=== PATIENT | female | born 1935 | race Caucasian/White ===

== ENCOUNTER 2017-05-11 15:19 | Inpatient (IN) ==
[2017-05-11] MEDS ORDERED: BISACODYL 10 MG RC PRN (21:20)
[2017-05-11] MEDS ORDERED: COLACE 100 MG PO PRN (21:20)
[2017-05-11] MEDS ORDERED: Ondansetron ODT 4 MG TAB.RAPDIS SL PRN (21:20)
[2017-05-12] MEDS: Acetaminophen 325 MG TABLET PO PRN (02:30)
[2017-05-12] MEDS: Ipratropium/Albuterol Neb 3 ML IH SCH ×4 (04:56→20:06)
[2017-05-12 05:21] LABS: Basophils % 0.4 %; Eosinophils # 0.3 K/mcL (0.0-0.6); Eosinophils % 3.8 %; Hematocrit 25.1 % (35.3-44.9); Hemoglobin 8.3 g/dL (11.5-15.4); Immature Granulocytes % 0.6 % (0-4); Lymphocytes # 1.1 K/mcL (0.6-4.6); Lymphocytes % 13.4 %; Mean Corpuscular HGB Conc 33.1 g/dL (31.6-35.5); Mean Corpuscular Hemoglobin 30.5 pg (28.0-33.3); Mean Corpuscular Volume 92.3 fL (83.0-100.0); Mean Platelet Volume 9.1 fL (9.4-12.4); Monocytes # 0.9 K/mcL (0.0-1.3); Platelet Count 307 K/mcL (140-400); Red Blood Count 2.72 M/mcL (3.82-4.97); Red Cell Distribution Width 15.3 % (11.5-14.5); Segmented Neutrophils % 70.8 %
[2017-05-12 05:23] LABS: INR 1.3; Prothrombin Time 13.6 Seconds (9.4-12.1)
[2017-05-12 05:26] LABS: Activated Partial Thrombo Time 24.1 Seconds (26.0-36.0)
[2017-05-12 05:29] LABS: BUN/Creatinine Ratio 14 (6-26); Blood Urea Nitrogen 9 mg/dL (7-20); Calcium 8.4 mg/dL (8.6-10.8); Carbon Dioxide 32 mEq/L (19-29); Chloride 98 mEq/L (98-109); Glucose 113 mg/dL (70-99); Osmolality,Calculated 283 (280-300); Potassium 3.5 mEq/L (3.5-4.5); Sodium 137 mEq/L (136-145); eGFR For African Americans > 60 (> 60); eGFR For Non-African Americans > 60 (> 60)
[2017-05-12] MEDS ORDERED: *HR* Enoxaparin 40 MG/0.4 ML SYRINGE SQ SCH (06:00)
[2017-05-12] MEDS ORDERED: LIPITOR 40 MG PO SCH (09:00)
[2017-05-12] MEDS ORDERED: DUONEB IH SCH (09:00)
[2017-05-12] MEDS ORDERED: SENNA 8.6 MG PO SCH (09:00)
[2017-05-12] MEDS ORDERED: NYSTATIN 1 GM TP SCH (09:00)
[2017-05-12] MEDS ORDERED: LASIX 20 MG PO SCH (09:00)
[2017-05-12] MEDS ORDERED: COREG 25 MG PO SCH (09:00)
[2017-05-12] MEDS ORDERED: LISINOPRIL 20 MG PO SCH (09:00)
[2017-05-12] MEDS ORDERED: SYNTHROID 125 MCG PO SCH (09:00)
[2017-05-12] MEDS: Nystatin POWDER 30 GM BOTTLE TP SCH ×3 (09:09→20:07)
[2017-05-12] MEDS: Sennosides 8.6 MG TABLET PO SCH (09:10)
[2017-05-12] MEDS: Furosemide 20 MG TABLET PO SCH (09:10)
[2017-05-12] MEDS: *HR* OxyCODONE Immed Rel 5 MG TABLET PO PRN (09:10)
[2017-05-12] MEDS: Aspirin Enteric Coated 81 MG Tablet PO SCH (09:10)
[2017-05-12] MEDS: Lisinopril 20 MG TABLET PO SCH (09:10)
--- NOTE | 2017-05-12 13:30 | Internal Med History&Physical ---
Date of Encounter: 05/12/17 Time of Encounter: 13:23 Assessment and Plan (1) CVA (cerebral vascular accident) Current visit: Yes Status: Acute Patient has left hemiplegia and problems associated with ischemic CVA Qualifiers: Precerebral and cerebral artery: middle cerebral artery Laterality of affected vessel: left Qualified Code(s): I63.312 - Cerebral infarction due to thrombosis of left middle cerebral artery Internal Medicine - H&P: HPI Chief complaint: This patient is here for CVA for rehabilitation Admitted From: Hospital to Hospital Transfer Plans for Post Hospital Care: Home History of present illness: Ms. Lozada is a 81 year old female Patient had an ischemic CVA Past Med Surg Social Fam HX - Past Medical History Medical history: atrial fibrillation, CVA, DVT, GERD, GI bleed, hyperlipidemia, hypertension, other Psychiatric history: no psych history - Past Surgical History Surgical History: appendectomy, cataract, hysterectomy, IVC filter - Social History Smoking Status: Never smoker Smokeless Tobacco Status: No Alcohol use: none Drug use: none - Family History Son Adopted: [place]: Telly Moy Age: 56 Family Member Ethnicity: Non- Living Status: Still Living Hx Family Cardiac Disorders: Yes Hx Family Respiratory Disorders: No Hx Family Cancer: Yes Hx Family GI Disorders: No Hx Family Genitourinary Disorders: No Hx Family Endocrine Disorder: Yes Hx Family Musculoskeletal Disorders: No Hx Family Neuromuscular Disorders: No Hx Family Neurologic Disorders: No Hx Family HEENT Disorders: No Hx Family Autoimmune Disorders: No Hx Family Reproductive Disorders: No Hx Family Psychosocial Disorders: No Hx Family Medical Disorders: No Internal Medicine - H&P: Meds Acetaminophen [Tylenol] 650 mg PO Q6HR PRN 05/11/17 [History] Aspirin [Lo-Dose Aspirin EC] 81 mg PO DAILY 05/11/17 [History] Atorvastatin [Lipitor] 40 mg PO DAILY 05/11/17 [History] Bisacodyl [Dulcolax] 10 mg DAILY PRN 05/11/17 [History] Carvedilol [Coreg] 25 mg PO BID 05/11/17 [History] Docusate [Colace] 100 mg PO BID PRN 05/11/17 [History] Furosemide [Lasix] 20 mg PO DAILY 05/11/17 [History] Ipratropium/Albuterol Neb [Duoneb] 3 ml IH Q6HWA 05/11/17 [History] Levothyroxine [Synthroid] 125 mcg PO DAILY 05/11/17 [History] Lisinopril [Zestril] 20 mg PO DAILY 05/11/17 [History] Melatonin [Melatonin] 5 mg PO HS 05/11/17 [History] Nystatin POWDER [Nystop] 1 gm TP QID 05/11/17 [History] Ondansetron ODT [Zofran ODT] 4 mg SL Q6HR PRN 05/11/17 [History] OxyCODONE Immed Rel [Roxicodone 5 MG] 5 mg PO Q4H PRN 05/11/17 [History] Sennosides [Senna] 8.6 mg PO DAILY 05/11/17 [History] Allergies No Known Allergies Allergy (Verified 10/07/15 10:27) All Systems PM: A 10-system review of systems was performed and is negative for pertinent findings except as documented above in the HPI. - Constitutional Vitals: Temp Pulse Resp BP Pulse Ox 97.8 F 83 18 148/66 95 05/12/17 11:23 05/12/17 11:23 05/12/17 11:23 05/12/17 11:23 05/12/17 11:23 - Head Head exam: Present: atraumatic, normocephalic - Neck Neck exam general surgery: Present: supple, trachea midline. Absent: lymphadenopathy - Respiratory Respiratory exam: Present: CTAB. Absent: accessory muscle use, rales, rhonchi, wheezes - Cardiovascular Cardiovascular exam: Present: RRR, +S1, +S2. Absent: diastolic murmur, gallop, rubs, systolic murmur - Neurological Exam Neurological exam: Present: CN II-XII intact, motor sensory deficit, oriented X3 , no focal deficits. Absent: pronater drift, facial droop, speech deficit Additional comments: Patient has significant weakness on left side Internal Med - H&P Results - Labs CBC & Chem 7: 05/12/17 05:05 05/12/17 05:05 Labs: Short CBC 05/12/17 Range/Units 05:05 WBC 8.5 (4.3-11.1) K/mcL Hgb 8.3 L (11.5-15.4) g/dL Hct 25.1 L (35.3-44.9) % Plt Count 307 (140-400) K/mcL Neutrophils # 6.0 (1.6-8.9) K/mcL BMP 05/12/17 05:05 Sodium 137 Potassium 3.5 Chloride 98 Carbon Dioxide 32 H BUN 9 Creatinine 0.63 Glucose 113 H Calcium 8.4 L Hemoglobins noted - VTE Documentation of Mechanical Device: Graduated compression elastic hosiery
[2017-05-12] MEDS: Melatonin 3 MG TABLET PO SCH (20:06)
[2017-05-12] MEDS ORDERED: NON-FORMULARY MEDICATION 1 EACH EACH (Melatonin 5 MG) PO SCH (21:00)
[2017-05-13] MEDS: Ipratropium/Albuterol Neb 3 ML IH SCH ×3 (04:00→15:34)
[2017-05-13] MEDS: *HR* Enoxaparin 80 MG/0.8 ML SYRINGE SQ SCH (05:43)
[2017-05-13] MEDS: *HR* OxyCODONE Immed Rel 5 MG TABLET PO PRN ×2 (09:27→20:47)
[2017-05-13] MEDS: Lisinopril 20 MG TABLET PO SCH (09:27)
[2017-05-13] MEDS: Nystatin POWDER 30 GM BOTTLE TP SCH ×3 (09:28→20:47)
[2017-05-13] MEDS: Furosemide 20 MG TABLET PO SCH (09:28)
[2017-05-13] MEDS: Aspirin Enteric Coated 81 MG Tablet PO SCH (09:28)
[2017-05-13] MEDS: Sennosides 8.6 MG TABLET PO SCH (09:28)
--- NOTE | 2017-05-13 14:23 | Internal Med Progress Note ---
Date of Encounter: 05/13/17 Time of Encounter: 14:21 - Assessment and plan (1) CVA (cerebral vascular accident) Current Visit: Yes Status: Acute Assessment and plan: This was somewhat remote was in the acute episode. She had presented to emergency room abdominal pain. She was found to have hematoma please see the study Qualifiers: Precerebral and cerebral artery: middle cerebral artery Laterality of affected vessel: left Qualified Code(s): I63.312 - Cerebral infarction due to thrombosis of left middle cerebral artery - Time Spent With Patient less than 15 minutes - Subjective Interval history: Patient is off working with the therapist. Yesterday I observe the sutures in her right leg and we removed those. The oanh that were pulled out seemed to been in a while and it was well healed - Constitutional Vitals: Temp Pulse Resp BP Pulse Ox 98.1 F 82 16 147/82 92 05/13/17 06:44 05/13/17 06:44 05/12/17 16:00 05/13/17 06:44 05/12/17 16:00 - Head Head exam: Present: atraumatic, normocephalic - Neck Neck exam general surgery: Present: supple, trachea midline. Absent: lymphadenopathy - Respiratory Respiratory exam: Present: CTAB. Absent: accessory muscle use, rales, rhonchi, wheezes - Cardiovascular Cardiovascular exam: Present: RRR, +S1, +S2. Absent: diastolic murmur, gallop, rubs, systolic murmur Internal Medicine: Result - Labs CBC & Chem 7: 05/12/17 05:05 05/12/17 05:05 Labs: Lab looks stable - ABG Interpretation ABG results: PT/INR, D-dimer PT 13.6 Seconds (9.4-12.1) H 05/12/17 05:05 - VTE Documentation of Mechanical Device: Graduated compression elastic hosiery Consult Discharge Plan - Plan Referrals: Viktoria Diaz, SOCIAL STUDIES TEACHER [Primary Care Provider] -
[2017-05-13] MEDS: Melatonin 3 MG TABLET PO SCH (20:47)
[2017-05-14] MEDS: *HR* Enoxaparin 80 MG/0.8 ML SYRINGE SQ SCH (04:15)
[2017-05-14] MEDS: *HR* OxyCODONE Immed Rel 5 MG TABLET PO PRN ×2 (04:16→21:51)
[2017-05-14] MEDS: Furosemide 20 MG TABLET PO SCH (08:11)
[2017-05-14] MEDS: Lisinopril 20 MG TABLET PO SCH (08:11)
[2017-05-14] MEDS: Sennosides 8.6 MG TABLET PO SCH (08:11)
[2017-05-14] MEDS: Aspirin Enteric Coated 81 MG Tablet PO SCH (08:11)
[2017-05-14] MEDS: Nystatin POWDER 30 GM BOTTLE TP SCH ×3 (08:12→22:04)
--- NOTE | 2017-05-14 13:51 | Internal Med Progress Note ---
Date of Encounter: 05/14/17 Time of Encounter: 13:49 - Assessment and plan (1) CVA (cerebral vascular accident) Current Visit: Yes Status: Acute Assessment and plan: This year for actually ramifications of abdominal pain and weakness. She did have a CVA. And then was admitted to the acute facility for abdominal pain and was found to have a hematoma. See previous study Qualifiers: Precerebral and cerebral artery: middle cerebral artery Laterality of affected vessel: left Qualified Code(s): I63.312 - Cerebral infarction due to thrombosis of left middle cerebral artery - Time Spent With Patient less than 15 minutes - Subjective Interval history: Patient is doing well. Been leaving the she is in the chair up continue the wrappings with the ASIS. - Constitutional Vitals: Temp Pulse Resp BP Pulse Ox 97.8 F 86 16 154/67 95 05/14/17 07:16 05/14/17 07:16 05/14/17 07:16 05/14/17 07:16 05/14/17 07:16 - Head Head exam: Present: atraumatic, normal inspection, normocephalic - Neck Neck exam general surgery: Present: supple, trachea midline. Absent: lymphadenopathy - Respiratory Respiratory exam: Present: CTAB. Absent: accessory muscle use, rales, rhonchi, wheezes - Cardiovascular Cardiovascular exam: Present: RRR, +S1, +S2. Absent: diastolic murmur, gallop, rubs, systolic murmur - GI/Abdominal GI/Abdominal exam: Present: normal bowel sounds, soft, no peritoneal signs. Absent: distended, tenderness - Expanded Lower Extremities Exam Lower Leg exam: Present: erythema, swelling, tenderness (Continuing the Yassine wrap 's and patient is going to be seen by wound care.) Internal Medicine: Result - Labs CBC & Chem 7: 05/12/17 05:05 05/12/17 05:05 Labs: Lab is stable - ABG Interpretation ABG results: PT/INR, D-dimer PT 13.6 Seconds (9.4-12.1) H 05/12/17 05:05 - VTE Documentation of Mechanical Device: Graduated compression elastic hosiery Consult Discharge Plan - Plan Referrals: Viktoria Diaz RAMP AGENT [Primary Care Provider] -
[2017-05-14] MEDS: Melatonin 3 MG TABLET PO SCH (21:51)
[2017-05-15] MEDS: *HR* Enoxaparin 80 MG/0.8 ML SYRINGE SQ SCH (06:43)
[2017-05-15] MEDS: *HR* OxyCODONE Immed Rel 5 MG TABLET PO PRN ×2 (06:48→20:45)
[2017-05-15] MEDS: Aspirin Enteric Coated 81 MG Tablet PO SCH (08:55)
[2017-05-15] MEDS: Lisinopril 20 MG TABLET PO SCH (08:56)
[2017-05-15] MEDS: Sennosides 8.6 MG TABLET PO SCH (08:56)
[2017-05-15] MEDS: Furosemide 20 MG TABLET PO SCH (08:56)
[2017-05-15] MEDS: Nystatin POWDER 30 GM BOTTLE TP SCH ×3 (09:17→20:49)
--- NOTE | 2017-05-15 11:30 | Internal Med Progress Note ---
Date of Encounter: 05/15/17 Time of Encounter: 11:28 - Assessment and plan (1) CVA (cerebral vascular accident) Current Visit: Yes Status: Acute Assessment and plan: History of a CVA but her admission this time was for weakness generated by hematoma which caused abdominal pain. Please see the records Qualifiers: Precerebral and cerebral artery: middle cerebral artery Laterality of affected vessel: left Qualified Code(s): I63.312 - Cerebral infarction due to thrombosis of left middle cerebral artery - Time Spent With Patient less than 15 minutes - Subjective Interval history: Patient is doing well. Been leaving the she is in the chair up continue the wrappings with the ASIS. - Constitutional Vitals: Temp Pulse Resp BP Pulse Ox 98.8 F 98 18 163/65 94 05/15/17 07:19 05/15/17 07:19 05/15/17 07:19 05/15/17 07:19 05/15/17 07:19 - Head Head exam: Present: atraumatic, normal inspection, normocephalic - Respiratory Respiratory exam: Present: CTAB. Absent: accessory muscle use, rales, rhonchi, wheezes - Cardiovascular Cardiovascular exam: Present: RRR, +S1, +S2. Absent: diastolic murmur, gallop, rubs, systolic murmur - GI/Abdominal GI/Abdominal exam: Present: normal bowel sounds, soft, no peritoneal signs. Absent: distended, tenderness Internal Medicine: Result - Labs CBC & Chem 7: 05/12/17 05:05 05/12/17 05:05 Labs: Lab is stable - ABG Interpretation ABG results: PT/INR, D-dimer PT 13.6 Seconds (9.4-12.1) H 05/12/17 05:05 - VTE Documentation of Mechanical Device: Graduated compression elastic hosiery Consult Discharge Plan - Plan Referrals: Viktoria Diaz STOCK HOLDER [Primary Care Provider] -
[2017-05-15] MEDS: Melatonin 3 MG TABLET PO SCH (20:45)
[2017-05-16 05:45] LABS: Basophils % 0.4 %; Eosinophils # 0.3 K/mcL (0.0-0.6); Eosinophils % 4.3 %; Hematocrit 26.4 % (35.3-44.9); Hemoglobin 8.6 g/dL (11.5-15.4); Immature Granulocytes % 0.7 % (0-4); Lymphocytes # 1.5 K/mcL (0.6-4.6); Lymphocytes % 20.2 %; Mean Corpuscular HGB Conc 32.6 g/dL (31.6-35.5); Mean Corpuscular Hemoglobin 30.4 pg (28.0-33.3); Mean Corpuscular Volume 93.3 fL (83.0-100.0); Mean Platelet Volume 9.5 fL (9.4-12.4); Monocytes # 0.9 K/mcL (0.0-1.3); Monocytes % 12.3 %; Neutrophils # 4.7 K/mcL (1.6-8.9); Platelet Count 294 K/mcL (140-400); Red Blood Count 2.83 M/mcL (3.82-4.97); Red Cell Distribution Width 15.3 % (11.5-14.5); Segmented Neutrophils % 62.1 %
[2017-05-16 05:55] LABS: BUN/Creatinine Ratio 16 (6-26); Blood Urea Nitrogen 11 mg/dL (7-20); Calcium 8.6 mg/dL (8.6-10.8); Carbon Dioxide 33 mEq/L (19-29); Chloride 96 mEq/L (98-109); Glucose 123 mg/dL (70-99); Osmolality,Calculated 285 (280-300); Potassium 3.8 mEq/L (3.5-4.5); Sodium 137 mEq/L (136-145); eGFR For African Americans > 60 (> 60); eGFR For Non-African Americans > 60 (> 60)
[2017-05-16] MEDS: *HR* Enoxaparin 80 MG/0.8 ML SYRINGE SQ SCH (06:13)
[2017-05-16] MEDS: *HR* OxyCODONE Immed Rel 5 MG TABLET PO PRN ×4 (06:14→19:48)
[2017-05-16] MEDS: Aspirin Enteric Coated 81 MG Tablet PO SCH (08:07)
[2017-05-16] MEDS: Sennosides 8.6 MG TABLET PO SCH (08:07)
[2017-05-16] MEDS: Lisinopril 20 MG TABLET PO SCH (08:07)
[2017-05-16] MEDS: Furosemide 20 MG TABLET PO SCH (08:07)
[2017-05-16] MEDS: Nystatin POWDER 30 GM BOTTLE TP SCH ×4 (08:08→19:49)
--- NOTE | 2017-05-16 13:43 | Internal Med Progress Note ---
Date of Encounter: 05/16/17 Time of Encounter: 13:41 - Assessment and plan (1) CVA (cerebral vascular accident) Current Visit: Yes Status: Acute Assessment and plan: Patient had a CVA a month ago was in the half-way than abdominal pain. Was transferred to acute care facility and family did not want her to return to the half-way. He is here now receiving therapy. But she is very deconditioned Qualifiers: Precerebral and cerebral artery: middle cerebral artery Laterality of affected vessel: left Qualified Code(s): I63.312 - Cerebral infarction due to thrombosis of left middle cerebral artery - Time Spent With Patient less than 15 minutes - Subjective Interval history: Still a struggle to move. She is of three-person transfer - Constitutional Vitals: Temp Pulse Resp BP Pulse Ox 97.6 F 73 16 105/68 96 05/16/17 11:02 05/16/17 11:02 05/16/17 11:02 05/16/17 11:02 05/16/17 11:02 - Head Head exam: Present: atraumatic, normal inspection, normocephalic - Neck Neck exam general surgery: Present: supple, trachea midline. Absent: lymphadenopathy - Respiratory Respiratory exam: Present: CTAB. Absent: accessory muscle use, rales, rhonchi, wheezes - Cardiovascular Cardiovascular exam: Present: RRR, +S1, +S2. Absent: diastolic murmur, gallop, rubs, systolic murmur Internal Medicine: Result - Labs CBC & Chem 7: 05/16/17 05:00 05/16/17 05:00 Labs: Short CBC 05/16/17 Range/Units 05:00 WBC 7.6 (4.3-11.1) K/mcL Hgb 8.6 L (11.5-15.4) g/dL Hct 26.4 L (35.3-44.9) % Plt Count 294 (140-400) K/mcL Neutrophils # 4.7 (1.6-8.9) K/mcL BMP 05/16/17 05:00 Sodium 137 Potassium 3.8 Chloride 96 L Carbon Dioxide 33 H BUN 11 Creatinine 0.68 Glucose 123 H Calcium 8.6 ab state - ABG Interpretation ABG results: PT/INR, D-dimer PT 13.6 Seconds (9.4-12.1) H 05/12/17 05:05 - VTE Documentation of Mechanical Device: Graduated compression elastic hosiery Consult Discharge Plan - Plan Referrals: Viktoria Diaz, CASTING OPERATOR HELPER [Primary Care Provider] -
[2017-05-16] MEDS: Melatonin 3 MG TABLET PO SCH (19:48)
[2017-05-17] MEDS: *HR* Enoxaparin 80 MG/0.8 ML SYRINGE SQ SCH (05:39)
[2017-05-17] MEDS: Lisinopril 20 MG TABLET PO SCH (08:45)
[2017-05-17] MEDS: Sennosides 8.6 MG TABLET PO SCH (08:45)
[2017-05-17] MEDS: *HR* OxyCODONE Immed Rel 5 MG TABLET PO PRN ×2 (08:45→18:24)
[2017-05-17] MEDS: Aspirin Enteric Coated 81 MG Tablet PO SCH (08:45)
[2017-05-17] MEDS: Furosemide 20 MG TABLET PO SCH (08:46)
[2017-05-17] MEDS: Nystatin POWDER 30 GM BOTTLE TP SCH ×3 (08:46→21:24)
--- NOTE | 2017-05-17 13:21 | Internal Med Progress Note ---
Date of Encounter: 05/17/17 Time of Encounter: 13:19 - Assessment and plan (1) CVA (cerebral vascular accident) Current Visit: Yes Status: Acute Assessment and plan: Patient had a stroke 6 weeks ago and was in the long-term for short period time. Then she had the hematoma which caused her to go to the acute care facility. She was brought here though because she is now very deconditioned Qualifiers: Precerebral and cerebral artery: middle cerebral artery Laterality of affected vessel: left Qualified Code(s): I63.312 - Cerebral infarction due to thrombosis of left middle cerebral artery - Time Spent With Patient less than 15 minutes - Subjective Interval history: Still a struggle to move. She is of three-person transfer still needs maximum assistance. She is dressed in progress - Constitutional Vitals: Temp Pulse Resp BP Pulse Ox 98.2 F 82 18 111/76 94 05/17/17 07:33 05/17/17 07:33 05/17/17 07:33 05/17/17 07:33 05/17/17 07:33 - Head Head exam: Present: normal inspection - Neck Neck exam general surgery: Present: supple, trachea midline. Absent: lymphadenopathy - Respiratory Respiratory exam: Present: CTAB. Absent: accessory muscle use, rales, rhonchi, wheezes - Cardiovascular Cardiovascular exam: Present: RRR, +S1, +S2. Absent: diastolic murmur, gallop, rubs, systolic murmur Internal Medicine: Result - Labs CBC & Chem 7: 05/16/17 05:00 05/16/17 05:00 Labs: Labs stable - ABG Interpretation ABG results: PT/INR, D-dimer PT 13.6 Seconds (9.4-12.1) H 05/12/17 05:05 - VTE Documentation of Mechanical Device: Graduated compression elastic hosiery Consult Discharge Plan - Plan Referrals: Viktoria Diaz CNP [Primary Care Provider] -
[2017-05-17] MEDS: Acetaminophen 325 MG TABLET PO PRN (21:19)
[2017-05-17] MEDS: Melatonin 3 MG TABLET PO SCH (21:19)
[2017-05-18] MEDS: *HR* OxyCODONE Immed Rel 5 MG TABLET PO PRN ×3 (03:43→20:09)
[2017-05-18] MEDS: *HR* Enoxaparin 80 MG/0.8 ML SYRINGE SQ SCH (05:52)
[2017-05-18] MEDS: Furosemide 20 MG TABLET PO SCH (08:09)
[2017-05-18] MEDS: Lisinopril 20 MG TABLET PO SCH (08:09)
[2017-05-18] MEDS: Aspirin Enteric Coated 81 MG Tablet PO SCH (08:13)
[2017-05-18] MEDS: Sennosides 8.6 MG TABLET PO SCH (08:13)
[2017-05-18] MEDS: Nystatin POWDER 30 GM BOTTLE TP SCH ×3 (08:14→20:12)
[2017-05-18] MEDS: Melatonin 3 MG TABLET PO SCH (20:08)
[2017-05-19] MEDS: *HR* OxyCODONE Immed Rel 5 MG TABLET PO PRN ×4 (01:26→22:21)
[2017-05-19] MEDS: Acetaminophen 325 MG TABLET PO PRN (04:03)
[2017-05-19] MEDS: *HR* Enoxaparin 80 MG/0.8 ML SYRINGE SQ SCH (05:49)
[2017-05-19] MEDS: Aspirin Enteric Coated 81 MG Tablet PO SCH (07:45)
[2017-05-19] MEDS: Lisinopril 20 MG TABLET PO SCH (07:45)
[2017-05-19] MEDS: Sennosides 8.6 MG TABLET PO SCH (07:45)
[2017-05-19] MEDS: Nystatin POWDER 30 GM BOTTLE TP SCH ×3 (07:45→22:22)
[2017-05-19] MEDS: Furosemide 20 MG TABLET PO SCH (07:46)
--- NOTE | 2017-05-19 15:27 | Internal Med Progress Note ---
Date of Encounter: 05/19/17 Time of Encounter: 15:25 - Assessment and plan (1) CVA (cerebral vascular accident) Current Visit: Yes Status: Acute Qualifiers: Precerebral and cerebral artery: middle cerebral artery Laterality of affected vessel: left Qualified Code(s): I63.312 - Cerebral infarction due to thrombosis of left middle cerebral artery - Subjective Interval history: Still a struggle to move. She is of three-person transfer still needs maximum assistance. She is dressed in progress. Patient's moving her legs better and getting her in the upright. Apparently with [facility] to the wound clinic today and they said no pressure on the heel. - Constitutional Vitals: Temp Pulse Resp BP Pulse Ox 98.2 F 73 18 145/64 93 05/19/17 07:10 05/19/17 07:10 05/19/17 07:10 05/19/17 07:10 05/19/17 07:10 Internal Medicine: Result - Labs CBC & Chem 7: 05/16/17 05:00 05/16/17 05:00 - ABG Interpretation ABG results: PT/INR, D-dimer PT 13.6 Seconds (9.4-12.1) H 05/12/17 05:05 - VTE Documentation of Mechanical Device: Graduated compression elastic hosiery Consult Discharge Plan - Plan Referrals: Viktoria Diaz DATE PULLER [Primary Care Provider] -
[2017-05-19] MEDS: Melatonin 3 MG TABLET PO SCH (22:20)
[2017-05-20] MEDS: *HR* Enoxaparin 80 MG/0.8 ML SYRINGE SQ SCH (06:30)
[2017-05-20] MEDS: *HR* OxyCODONE Immed Rel 5 MG TABLET PO PRN ×2 (06:31→21:32)
[2017-05-20] MEDS: Furosemide 20 MG TABLET PO SCH (09:08)
[2017-05-20] MEDS: Sennosides 8.6 MG TABLET PO SCH (09:08)
[2017-05-20] MEDS: Aspirin Enteric Coated 81 MG Tablet PO SCH (09:08)
[2017-05-20] MEDS: Lisinopril 20 MG TABLET PO SCH (09:09)
[2017-05-20] MEDS: Nystatin POWDER 30 GM BOTTLE TP SCH ×3 (09:10→20:56)
--- NOTE | 2017-05-20 15:02 | Internal Med Progress Note ---
Date of Encounter: 05/20/17 Time of Encounter: 15:00 - Assessment and plan (1) CVA (cerebral vascular accident) Current Visit: Yes Status: Acute Assessment and plan: Patient's here for our deconditioning and the fact that she according to the family did not receive much physical therapy and nursing Qualifiers: Precerebral and cerebral artery: middle cerebral artery Laterality of affected vessel: left Qualified Code(s): I63.312 - Cerebral infarction due to thrombosis of left middle cerebral artery - Time Spent With Patient less than 15 minutes - Subjective Interval history: Staff is reporting a little increased edema. She is putting dents in her legs where they are doing exercises. I would increase her diuretic for a few days I will also check chemistry in the. - Constitutional Vitals: Temp Pulse Resp BP Pulse Ox 97.8 F 81 16 149/57 93 05/20/17 07:00 05/20/17 07:00 05/20/17 07:00 05/20/17 07:00 05/20/17 07:00 - Head Head exam: Present: atraumatic, normal inspection, normocephalic - Neck Neck exam general surgery: Present: supple, trachea midline. Absent: lymphadenopathy - Respiratory Respiratory exam: Present: CTAB. Absent: accessory muscle use, rales, rhonchi, wheezes - Cardiovascular Cardiovascular exam: Present: RRR, +S1, +S2. Absent: diastolic murmur, gallop, rubs, systolic murmur Internal Medicine: Result - Labs CBC & Chem 7: 05/16/17 05:00 05/16/17 05:00 Labs: Labs stable - ABG Interpretation ABG results: PT/INR, D-dimer PT 13.6 Seconds (9.4-12.1) H 05/12/17 05:05 - VTE Documentation of Mechanical Device: Graduated compression elastic hosiery Consult Discharge Plan - Plan Referrals: Viktoria Diaz, BODY WORKER [Primary Care Provider] -
[2017-05-20] MEDS: Furosemide 40 MG TABLET PO SCH (17:40)
[2017-05-20] MEDS: Melatonin 3 MG TABLET PO SCH (20:56)
[2017-05-21] MEDS: *HR* Enoxaparin 80 MG/0.8 ML SYRINGE SQ SCH (04:53)
[2017-05-21 05:24] LABS: BUN/Creatinine Ratio 17 (6-26); Blood Urea Nitrogen 11 mg/dL (7-20); Calcium 8.5 mg/dL (8.6-10.8); Carbon Dioxide 34 mEq/L (19-29); Chloride 96 mEq/L (98-109); Glucose 113 mg/dL (70-99); Osmolality,Calculated 286 (280-300); Potassium 3.8 mEq/L (3.5-4.5); Sodium 138 mEq/L (136-145); eGFR For African Americans > 60 (> 60); eGFR For Non-African Americans > 60 (> 60)
[2017-05-21] MEDS: Sennosides 8.6 MG TABLET PO SCH (09:25)
[2017-05-21] MEDS: Aspirin Enteric Coated 81 MG Tablet PO SCH (09:26)
[2017-05-21] MEDS: Furosemide 40 MG TABLET PO SCH ×2 (09:26→17:41)
[2017-05-21] MEDS: Lisinopril 20 MG TABLET PO SCH (09:26)
[2017-05-21] MEDS: Acetaminophen 325 MG TABLET PO PRN ×2 (09:29→20:18)
--- NOTE | 2017-05-21 11:26 | Internal Med Progress Note ---
Date of Encounter: 05/21/17 Time of Encounter: 11:24 - Assessment and plan (1) CVA (cerebral vascular accident) Current Visit: Yes Status: Acute Assessment and plan: Patient's here for having a recent CVA Qualifiers: Precerebral and cerebral artery: middle cerebral artery Laterality of affected vessel: left Qualified Code(s): I63.312 - Cerebral infarction due to thrombosis of left middle cerebral artery - Time Spent With Patient less than 15 minutes - Subjective Interval history: Think this staff is very pessimistic she will be up ambulating around her house. So I have introduced the idea to the [facility] might be indicated. We will have to see how it goes this week - Constitutional Vitals: Temp Pulse Resp BP Pulse Ox 97.8 F 83 17 149/66 95 05/21/17 07:40 05/21/17 07:40 05/21/17 07:40 05/21/17 07:40 05/21/17 07:40 - Head Head exam: Present: atraumatic, normal inspection, normocephalic - Neck Neck exam general surgery: Present: supple, trachea midline. Absent: lymphadenopathy - Respiratory Respiratory exam: Present: CTAB. Absent: accessory muscle use, rales, rhonchi, wheezes - Cardiovascular Cardiovascular exam: Present: RRR, +S1, +S2. Absent: diastolic murmur, gallop, rubs, systolic murmur Internal Medicine: Result - Labs CBC & Chem 7: 05/16/17 05:00 05/21/17 05:00 Labs: BMP 05/21/17 05:00 Sodium 138 Potassium 3.8 Chloride 96 L Carbon Dioxide 34 H BUN 11 Creatinine 0.65 Glucose 113 H Calcium 8.5 L Lab is being followed. - ABG Interpretation ABG results: PT/INR, D-dimer PT 13.6 Seconds (9.4-12.1) H 05/12/17 05:05 - VTE Documentation of Mechanical Device: Graduated compression elastic hosiery Consult Discharge Plan - Plan Referrals: Viktoria Diaz, DIRECTOR REHABILITATION PROGRAM [Primary Care Provider] -
[2017-05-21] MEDS: *HR* OxyCODONE Immed Rel 5 MG TABLET PO PRN ×2 (13:36→20:17)
[2017-05-21] MEDS: Nystatin POWDER 30 GM BOTTLE TP SCH ×3 (13:36→20:20)
[2017-05-21] MEDS: Melatonin 3 MG TABLET PO SCH (20:18)
[2017-05-22] MEDS: *HR* Enoxaparin 80 MG/0.8 ML SYRINGE SQ SCH (05:12)
[2017-05-22] MEDS: *HR* OxyCODONE Immed Rel 5 MG TABLET PO PRN ×4 (05:12→20:33)
[2017-05-22] MEDS: Sennosides 8.6 MG TABLET PO SCH (08:23)
[2017-05-22] MEDS: Lisinopril 20 MG TABLET PO SCH (08:23)
[2017-05-22] MEDS: Aspirin Enteric Coated 81 MG Tablet PO SCH (08:23)
[2017-05-22] MEDS: Furosemide 40 MG TABLET PO SCH ×2 (08:23→15:22)
[2017-05-22] MEDS: Acetaminophen 325 MG TABLET PO PRN ×2 (08:23→20:33)
[2017-05-22] MEDS: Nystatin POWDER 30 GM BOTTLE TP SCH ×3 (08:25→20:33)
--- NOTE | 2017-05-22 11:20 | Internal Med Progress Note ---
Date of Encounter: 05/22/17 Time of Encounter: 11:15 - Assessment and plan (1) CVA (cerebral vascular accident) Current Visit: Yes Status: Acute Assessment and plan: Patient has CVA about 7 weeks ago. In family felt she did not get adequate therapy she is here now for that. But walking is still quite challenge Qualifiers: Precerebral and cerebral artery: middle cerebral artery Laterality of affected vessel: left Qualified Code(s): I63.312 - Cerebral infarction due to thrombosis of left middle cerebral artery - Time Spent With Patient less than 15 minutes - Subjective Interval history: Think this staff is very pessimistic she will be up ambulating around her house. So I have introduced the idea to the [facility] might be [facility]. We will have to see how it goes this week - Constitutional Vitals: Temp Pulse Resp BP Pulse Ox 97.5 F L 87 16 158/65 94 05/22/17 07:00 05/22/17 07:00 05/22/17 07:00 05/22/17 07:00 05/22/17 07:00 General appearance: Present: morbidly obese, pleasant - Head Head exam: Present: atraumatic, normal inspection, normocephalic - Neck Neck exam general surgery: Present: supple, trachea midline. Absent: lymphadenopathy - Respiratory Respiratory exam: Present: CTAB. Absent: accessory muscle use, rales, rhonchi, wheezes - Cardiovascular Cardiovascular exam: Present: RRR, +S1, +S2. Absent: diastolic murmur, gallop, rubs, systolic murmur - Expanded Lower Extremities Exam Lower Leg exam: Present: swelling (I think it wriggles her return to the tibia in both legs and I think that the swelling is down. There is much less erythema ) Internal Medicine: Result - Labs CBC & Chem 7: 05/16/17 05:00 05/21/17 05:00 Labs: Lab noted - ABG Interpretation ABG results: PT/INR, D-dimer PT 13.6 Seconds (9.4-12.1) H 05/12/17 05:05 - VTE Documentation of Mechanical Device: Graduated compression elastic hosiery Consult Discharge Plan - Plan Referrals: Viktoria Diaz STUFFING MACHINE OPERATOR [Primary Care Provider] -
[2017-05-22] MEDS: Melatonin 3 MG TABLET PO SCH (20:35)
[2017-05-23] MEDS: *HR* Enoxaparin 80 MG/0.8 ML SYRINGE SQ SCH (05:27)
[2017-05-23 06:03] LABS: Basophils % 0.5 %; Eosinophils # 0.3 K/mcL (0.0-0.6); Eosinophils % 4.6 %; Hematocrit 28.6 % (35.3-44.9); Hemoglobin 9.2 g/dL (11.5-15.4); Immature Granulocytes % 0.5 % (0-4); Lymphocytes % 33.9 %; Mean Corpuscular HGB Conc 32.2 g/dL (31.6-35.5); Mean Corpuscular Hemoglobin 30.3 pg (28.0-33.3); Mean Corpuscular Volume 94.1 fL (83.0-100.0); Mean Platelet Volume 9.3 fL (9.4-12.4); Monocytes # 0.7 K/mcL (0.0-1.3); Monocytes % 12.2 %; Neutrophils # 2.9 K/mcL (1.6-8.9); Platelet Count 279 K/mcL (140-400); Red Blood Count 3.04 M/mcL (3.82-4.97); Red Cell Distribution Width 15.7 % (11.5-14.5); Segmented Neutrophils % 48.3 %
[2017-05-23 06:18] LABS: BUN/Creatinine Ratio 16 (6-26); Blood Urea Nitrogen 12 mg/dL (7-20); Calcium 9.1 mg/dL (8.6-10.8); Carbon Dioxide 35 mEq/L (19-29); Chloride 96 mEq/L (98-109); Glucose 107 mg/dL (70-99); Osmolality,Calculated 286 (280-300); Potassium 3.8 mEq/L (3.5-4.5); Sodium 138 mEq/L (136-145); eGFR For African Americans > 60 (> 60); eGFR For Non-African Americans > 60 (> 60)
[2017-05-23] MEDS: Lisinopril 20 MG TABLET PO SCH (08:47)
[2017-05-23] MEDS: Furosemide 40 MG TABLET PO SCH ×2 (08:47→17:24)
[2017-05-23] MEDS: Nystatin POWDER 30 GM BOTTLE TP SCH ×3 (08:47→20:27)
[2017-05-23] MEDS: Sennosides 8.6 MG TABLET PO SCH (08:47)
[2017-05-23] MEDS: Aspirin Enteric Coated 81 MG Tablet PO SCH (08:47)
--- NOTE | 2017-05-23 11:40 | Internal Med Progress Note ---
Date of Encounter: 05/23/17 Time of Encounter: 11:38 - Assessment and plan (1) Acute ischemic right MCA stroke Current Visit: Yes Status: Acute Assessment and plan: Patient with history of atrial fibrillation not previously on anticoagulation sustained right middle cerebral artery CVA with dense left hemiplegia. The left -sided weakness is very dense. She is making very little progress. She does have modified diet but able to take thin liquids with chin tuck. She denies any new CVA symptoms. She continues with her PT and OT therapies and a swing bed. Since she had both arterial and venous thrombosis, a hypercoagulopathy workup was done in [place] including lupus anticoagulant, anticardiolipin antibody, anti-beta 2 glycoprotein 1 antibody which were all negative. She has an appointment to see hematology in [place], but the family would like to have that done locally and we will arrange [facility] for [facility] evaluation. (2) Left hemiplegia Current Visit: Yes Status: Acute Assessment and plan: Dense left hemiplegia as above. Very minimal movement. Working with PT and OT. Long-term prognosis for return home is poor (3) History of DVT of lower extremity Current Visit: Yes Status: Acute Assessment and plan: History of previous DVT of the right lower extremity, IVC filter was placed in [place] because of known retroperitoneal bleed. No signs of recurrence. (4) Popliteal artery occlusion, left Current Visit: Yes Status: Acute Assessment and plan: History of left popliteal artery occlusion and she underwent left lower extremity embolectomy/thrombectomy. The incision is healing nicely. She has good peripheral circulation (5) History of embolectomy Current Visit: Yes Status: Acute (6) Peritoneal hematoma Current Visit: Yes Status: Acute Assessment and plan: Previous retroperitoneal bleed. She has been off her anticoagulation. Qualifiers: Encounter type: sequela Qualified Code(s): S36.92XS - Contusion of unspecified intra-abdominal organ, sequela (7) Presence of IVC filter Current Visit: Yes Status: Acute (8) Atrial fibrillation Current Visit: Yes Status: Acute Assessment and plan: Chronic atrial fibrillation, rate controlled. Qualifiers: Atrial fibrillation type: chronic Qualified Code(s): I48.2 - Chronic atrial fibrillation (9) Hypertension Current Visit: Yes Status: Acute Assessment and plan: Chronic hypertension and is controlled Qualifiers: Hypertension type: essential hypertension Qualified Code(s): I10 - Essential (primary) hypertension (10) Left breast mass Current Visit: Yes Status: Acute Assessment and plan: History of incidental left breast mass when undergoing CT scan of the chest in malignancy workup. She has not had a mammogram yet. - Subjective Interval history: Patient biggest complaint is that her bowels have not moved well. She complains of a burning sensation in the rectal area. She is also having frequency of urination and incontinence. She denies any cardiac type chest pain , palpitation, dyspnea, abdominal pain, nausea or vomiting. She still on a restricted diet for texture. She is virtually no movement of the left upper extremity and left lower extremity is very impaired. Denies any severe pain in her extremities. - Constitutional Vitals: Temp Pulse Resp BP Pulse Ox 98 F 93 16 150/73 94 05/23/17 07:00 05/23/17 10:04 05/23/17 10:04 05/23/17 10:04 05/23/17 10:04 General appearance: Present: A&O X 3, morbidly obese, pleasant, answers questions appropriately - Respiratory Respiratory exam: Present: CTAB - Cardiovascular Cardiovascular exam: Present: irregular rhythm, +S1, +S2. Absent: systolic murmur Additional comments: Irregularly irregular rate and rhythm, controlled rate. - GI/Abdominal Additional comments: Patient is very obese. No liver or spleen enlargement or masses palpable. No pulsatile mass. Exam is difficult because of her obesity. - Extremities Exam Additional comments: Left heel has a "blood blister" measuring about 2 cm in diameter. It is intact and covered with Allevyn. She has slight puffiness and lower extremities. She is a well-healed incision in the left lower extremity from her thrombectomy. Neuro examination below - Neurological Exam Neurological exam: Present: alert, CN II-XII intact, oriented X3. Absent: facial droop, speech deficit Additional comments: Left upper extremity is almost completely flaccid. She can barely move her fingers in hand grasp, small amount of biceps strength against gravity. She can shrug her shoulders. Slightly hyperreflexive at the elbow. Left lower extremity she is able to bend her knee slightly when supine in bed. She can dorsiflex her left foot slightly against gravity. - Skin Additional comments: 2 cm diameter intact "blood blister" type decubitus left heel covered with Allevyn Internal Medicine: Result - Labs CBC & Chem 7: 05/23/17 05:20 05/23/17 05:20 Labs: Short CBC 05/23/17 Range/Units 05:20 WBC 5.9 (4.3-11.1) K/mcL Hgb 9.2 L (11.5-15.4) g/dL Hct 28.6 L (35.3-44.9) % Plt Count 279 (140-400) K/mcL Neutrophils # 2.9 (1.6-8.9) K/mcL BMP 05/23/17 05:20 Sodium 138 Potassium 3.8 Chloride 96 L Carbon Dioxide 35 H BUN 12 Creatinine 0.75 Glucose 107 H Calcium 9.1 She still is anemia but improved hemoglobin to 9.2 now. Electrolytes and renal function are normal. She has mild glucose elevation, but her glycohemoglobin is normal/nondiabetic - ABG Interpretation ABG results: PT/INR, D-dimer PT 13.6 Seconds (9.4-12.1) H 05/12/17 05:05 - VTE Documentation of Mechanical Device: Graduated compression elastic hosiery Consult Discharge Plan - Plan Referrals: Viktoria Diaz, LOADING UNIT TOOL SETTER [Primary Care Provider] -
[2017-05-23] MEDS: Bisacodyl 10 MG RECTAL SUPPOSITORY RC PRN (13:08)
[2017-05-23 13:14] LABS: Bilirubin,Urine Negative (Negative); Blood,Urine Moderate (Negative); Clarity,Urine Turbid (Clear); Color,Urine Yellow (Yellow); Glucose,Urine (UA) Normal (Normal); Ketones,Urine Negative (Negative); Leukocyte Esterase,Urine Large (Negative); Nitrite,Urine Negative (Negative); Protein,Urine 30 mg/dL (Neg-Trace); Urobilinogen,Urine Normal (Normal)
[2017-05-23 13:24] LABS: Bacteria,Urine Many per hpf (None-Few); WBC,Urine TNTC per hpf (0-3)
[2017-05-23] MEDS: Acetaminophen 325 MG TABLET PO PRN (17:27)
[2017-05-23] MEDS: *HR* OxyCODONE Immed Rel 5 MG TABLET PO PRN (20:25)
[2017-05-23] MEDS: Melatonin 3 MG TABLET PO SCH (20:25)
[2017-05-24] MEDS: *HR* Enoxaparin 80 MG/0.8 ML SYRINGE SQ SCH (05:16)
[2017-05-24] MEDS: Sennosides 8.6 MG TABLET PO SCH (08:09)
[2017-05-24] MEDS: Nystatin POWDER 30 GM BOTTLE TP SCH ×3 (08:09→20:56)
[2017-05-24] MEDS: Aspirin Enteric Coated 81 MG Tablet PO SCH (08:09)
[2017-05-24] MEDS: Lisinopril 20 MG TABLET PO SCH (08:09)
[2017-05-24] MEDS: Furosemide 40 MG TABLET PO SCH ×2 (08:09→17:10)
[2017-05-24] MEDS: Acetaminophen 325 MG TABLET PO PRN ×2 (08:11→23:40)
[2017-05-24] MEDS: *HR* OxyCODONE Immed Rel 5 MG TABLET PO PRN ×2 (10:06→20:49)
--- NOTE | 2017-05-24 18:14 | Internal Med Progress Note ---
Date of Encounter: 05/24/17 Time of Encounter: 18:12 - Assessment and plan (1) Acute ischemic right MCA stroke Current Visit: Yes Status: Acute Assessment and plan: Continued dense left hemiplegia. Continues with PT and OT and speech therapy. No major progress at this point. Her diet was advanced to regular diet and regular liquids (2) Left hemiplegia Current Visit: Yes Status: Acute (3) History of DVT of lower extremity Current Visit: Yes Status: Acute Assessment and plan: No signs of recurrence or tenderness. (4) Popliteal artery occlusion, left Current Visit: Yes Status: Acute Assessment and plan: Good perfusion. Incision healing nicely. (5) History of embolectomy Current Visit: Yes Status: Acute (6) Presence of IVC filter Current Visit: Yes Status: Acute (7) Atrial fibrillation Current Visit: Yes Status: Acute Assessment and plan: Today her heart rate is very regular. Qualifiers: Atrial fibrillation type: chronic Qualified Code(s): I48.2 - Chronic atrial fibrillation (8) Hypertension Current Visit: Yes Status: Acute Assessment and plan: Blood pressure is under good control. Qualifiers: Hypertension type: essential hypertension Qualified Code(s): I10 - Essential (primary) hypertension (9) Retroperitoneal hematoma Current Visit: Yes Status: Acute Assessment and plan: History of retroperitoneal bleed/hematoma. No signs of recurrence. (10) Urinary tract infection Current Visit: Yes Status: Acute Assessment and plan: Preliminary reading shows 100,000 colonies of gram-negative rods growing in the urine. She has had urinary symptoms of frequency and some incontinence. We will start Bactrim DS tonight while culture is pending. Qualifiers: Urinary tract infection type: acute cystitis Hematuria presence: without hematuria Qualified Code(s): N30.00 - Acute cystitis without hematuria (11) Left breast mass Current Visit: Yes Status: Acute Assessment and plan: I did not discuss this with her yet since I have assumed her care. - Subjective Interval history: Patient denies any acute complaints other than she has a burning sensation in her rectum when she passes a bowel movement that she thinks is hard. She denies a cardiac Chest pain, palpitation, dyspnea. No abdominal pain. She has been having urinary frequency and her urine culture is showing gram-negative rods 100,000 colonies. Regarding her A please check, she does not think she is any better. Speech has increased her diet level to regular food and thin liquids - Constitutional Vitals: Temp Pulse Resp BP Pulse Ox 98.6 F 80 16 138/58 95 05/24/17 07:36 05/24/17 07:36 05/24/17 07:36 05/24/17 07:36 05/24/17 07:36 General appearance: Present: A&O X 3, morbidly obese, pleasant, answers questions appropriately - Respiratory Respiratory exam: Present: CTAB - Cardiovascular Cardiovascular exam: Present: RRR, +S1, +S2. Absent: systolic murmur - GI/Abdominal GI/Abdominal exam: Present: soft. Absent: mass, tenderness - Extremities Exam Additional comments: Blood blister on the right heel unchanged and about 2 cm diameter. Covered with Allevyn - Neurological Exam Neurological exam: Present: CN II-XII intact, oriented X3 Additional comments: Dense hemiplegia of the left side. She can move her shoulder a bit, slight movement of the forearm against gravity and slight movement of a few fingers. She is slightly bend the left knee. Mild dorsiflexion of the left foot against gravity. - Skin Additional comments: Nicely healed incision in the left tibial area. Upper medial left buttock appears to have a pinch/bruise lesion which is flat. No skin breakdown. I do not think this is a pigmented lesion of a typical presentation but we will watch this. Internal Medicine: Result - Labs CBC & Chem 7: 05/23/17 05:20 05/23/17 05:20 Labs: Urine 05/23/17 Range/Units Unknown Urine Color Yellow (Yellow) Urine Clarity Turbid A (Clear) Urine pH 7.0 (5.0-8.0) pH Units Ur Specific [place] 1.020 (1.010-1.025) Urine Protein 30 H (Neg-Trace) mg/dL Urine Glucose (UA) Normal (Normal) mg/dL - ABG Interpretation ABG results: PT/INR, D-dimer PT 13.6 Seconds (9.4-12.1) H 05/12/17 05:05 - VTE Documentation of Mechanical Device: Graduated compression elastic hosiery Consult Discharge Plan - Plan Referrals: Viktoria Diaz, PRINT MACHINE OPERATOR [Primary Care Provider] -
[2017-05-24] MEDS: Melatonin 3 MG TABLET PO SCH (20:48)
[2017-05-24] MEDS: Sulfamethoxazole/Trimeth DS 1 EACH TABLET PO SCH (20:51)
[2017-05-25] MEDS: *HR* OxyCODONE Immed Rel 5 MG TABLET PO PRN ×4 (02:31→20:23)
[2017-05-25] MEDS: *HR* Enoxaparin 80 MG/0.8 ML SYRINGE SQ SCH (05:57)
[2017-05-25] MEDS: Aspirin Enteric Coated 81 MG Tablet PO SCH (09:35)
[2017-05-25] MEDS: Furosemide 40 MG TABLET PO SCH ×2 (09:35→17:05)
[2017-05-25] MEDS: Sennosides 8.6 MG TABLET PO SCH (09:35)
[2017-05-25] MEDS: Acetaminophen 325 MG TABLET PO PRN ×2 (09:35→22:22)
[2017-05-25] MEDS: Sulfamethoxazole/Trimeth DS 1 EACH TABLET PO SCH ×2 (09:35→20:24)
[2017-05-25] MEDS: Lisinopril 20 MG TABLET PO SCH (09:35)
[2017-05-25] MEDS: Nystatin POWDER 30 GM BOTTLE TP SCH ×3 (09:42→22:22)
--- NOTE | 2017-05-25 13:51 | Internal Med Progress Note ---
Date of Encounter: 05/25/17 Time of Encounter: 13:49 - Assessment and plan (1) Acute ischemic right MCA stroke Current Visit: Yes Status: Acute Assessment and plan: Very slow improvement in her left tj-plegia from her dense stroke. She is doing better on her truncal muscles and holding herself forward when seated upright. Still very little movement in left upper and lower extremity. No troubles with speech or with swallowing. Continue PT and OT and speech therapy (2) Left hemiplegia Current Visit: Yes Status: Acute Assessment and plan: As above. She is limited on weightbearing the left heel so therapies are working on her truncal stability and will be working on transfers. The plan is to have her seated upright and out of bed more often on a regular schedule (3) History of DVT of lower extremity Current Visit: Yes Status: Acute (4) Popliteal artery occlusion, left Current Visit: Yes Status: Acute (5) History of embolectomy Current Visit: Yes Status: Acute (6) Presence of IVC filter Current Visit: Yes Status: Acute (7) Atrial fibrillation Current Visit: Yes Status: Acute Assessment and plan: Today her heart rhythm is regular. Qualifiers: Atrial fibrillation type: chronic Qualified Code(s): I48.2 - Chronic atrial fibrillation (8) Hypertension Current Visit: Yes Status: Acute Assessment and plan: Blood pressure is under adequate control. Qualifiers: Hypertension type: essential hypertension Qualified Code(s): I10 - Essential (primary) hypertension (9) Retroperitoneal hematoma Current Visit: Yes Status: Acute (10) Urinary tract infection Current Visit: Yes Status: Acute Assessment and plan: No new symptoms. She was started on Bactrim last night. Qualifiers: Urinary tract infection type: acute cystitis Hematuria presence: without hematuria Qualified Code(s): N30.00 - Acute cystitis without hematuria (11) Left breast mass Current Visit: Yes Status: Acute - Subjective Interval history: Patient denies any chest pain, shortness of breath, abdominal pain. She says she has been sitting up more and feeling stronger. She is not having troubles with swallowing, she just does not get very hungry to eat much. Speech therapy thinks she is eating better now that she was before she came though. She denies any new weakness or CVA symptoms. - Constitutional Vitals: Temp Pulse Resp BP Pulse Ox 98.2 F 76 16 133/76 94 05/25/17 07:00 05/25/17 07:00 05/25/17 07:00 05/25/17 07:00 05/25/17 07:00 General appearance: Present: A&O X 3, morbidly obese, pleasant, answers questions appropriately - Respiratory Respiratory exam: Present: CTAB - Cardiovascular Cardiovascular exam: Present: RRR, +S1, +S2. Absent: systolic murmur - Extremities Exam Extremities exam: Absent: calf tenderness, pedal edema - Neurological Exam Additional comments: She has some shoulder motion on the left side. Slight finger movement. Last saw her in therapy she was seated upright and had improved quad strength with extension at the knee. - Skin Additional comments: I did not evaluate her blood blister on the left heel today. I saw last night and it was unchanged. Internal Medicine: Result - Labs CBC & Chem 7: 05/23/17 05:20 05/23/17 05:20 Labs: Urine 05/23/17 Range/Units Unknown Urine Color Yellow (Yellow) Urine Clarity Turbid A (Clear) Urine pH 7.0 (5.0-8.0) pH Units Ur Specific [place] 1.020 (1.010-1.025) Urine Protein 30 H (Neg-Trace) mg/dL Urine Glucose (UA) Normal (Normal) mg/dL - ABG Interpretation ABG results: PT/INR, D-dimer PT 13.6 Seconds (9.4-12.1) H 05/12/17 05:05 - VTE Documentation of Mechanical Device: Graduated compression elastic hosiery Consult Discharge Plan - Plan Referrals: Viktoria Diaz, WILDLIFE PROTECTOR [Primary Care Provider] -
--- NOTE | 2017-05-25 14:21 | Physcial Medicine-Consult Note ---
Date of Encounter: 05/25/17 Time of Encounter: 14:17 Physical Medicine - AP (1) Decubital ulcer Status: Acute Assessment and plan: 1. We will avoid weight bearing on the left lower limb. Consult for wound care. She may require surgical debridement. Code(s): L89.90 - Pressure ulcer of unspecified site, unspecified stage SNOMED Code(s): 955227696 (2) CVA (cerebral vascular accident) Status: Acute Assessment and plan: 1. Ms. Lozada has significant debility and poor trunk balance. She requires max A of 2-3 for bed mobility and transfers. She has had some mild improvement in her trunk stability. We will focus on sitting balance and transfers at this time. Will continue with work on goals of wheelchair mobility. We will hold attempting to stand and weight bear in light of her left heel decubitus ulcer and her poor endurance. Patient was encouraged to sit up during the day to improve endurance and strength. Code(s): I63.9 - Cerebral infarction, unspecified SNOMED Code(s): 679018850 Physical Medicine - HPI - Data of Consult Consult date: 05/25/17 Requesting Physician: Roger Garcia DO Primary Care Provider: Viktoria Diaz CNP - Consult Narrative Reason for consult: CVA History of present illness: Ms. Lozada is a 81 year old female with a PMHx significant for atrial fibrillation who was not on anticoagulation, who presented on 04/18/17 to and outside hospital with complaints of acute onset left sided weakness, dysarthria , and syncope. Patient was diagnosed with a right MCA CVA and was given TPA on 04/18/17. Patient underwent a CT angiogram with thrombectomy/TICI 2b revascularization. Patient was also found to a right DVT. Patient also underwent angioplasty of the right popliteal artery. Patient was stabilized and sent to an ECF for 30 days. She was subsequently transferred to [facility] for rehab on the skilled unit. CC: Roger Garcia DO Past Med Surg Social Fam HX - Past Medical History Medical history: atrial fibrillation, CVA, DVT, GERD, GI bleed, hyperlipidemia, hypertension, other Psychiatric history: no psych history - Past Surgical History Surgical History: appendectomy, cataract, hysterectomy, IVC filter - Social History Smoking Status: Never smoker Smokeless Tobacco Status: No Alcohol use: none Drug use: none - Family History Son Adopted: Russell: Telly Moy Age: 56 Family Member Ethnicity: Non- Living Status: Still Living Hx Family Cardiac Disorders: Yes Hx Family Respiratory Disorders: No Hx Family Cancer: Yes Hx Family GI Disorders: No Hx Family Genitourinary Disorders: No Hx Family Endocrine Disorder: Yes Hx Family Musculoskeletal Disorders: No Hx Family Neuromuscular Disorders: No Hx Family Neurologic Disorders: No Hx Family HEENT Disorders: No Hx Family Autoimmune Disorders: No Hx Family Reproductive Disorders: No Hx Family Psychosocial Disorders: No Hx Family Medical Disorders: No Medications and Allergies Acetaminophen [Tylenol] 650 mg PO Q6HR PRN 05/11/17 [History] Aspirin [Lo-Dose Aspirin EC] 81 mg PO DAILY 05/11/17 [History] Atorvastatin [Lipitor] 40 mg PO DAILY 05/11/17 [History] Bisacodyl [Dulcolax] 10 mg DAILY PRN 05/11/17 [History] Carvedilol [Coreg] 25 mg PO BID 05/11/17 [History] Docusate [Colace] 100 mg PO BID PRN 05/11/17 [History] Furosemide [Lasix] 20 mg PO DAILY 05/11/17 [History] Ipratropium/Albuterol Neb [Duoneb] 3 ml IH Q6HWA 05/11/17 [History] Levothyroxine [Synthroid] 125 mcg PO DAILY 05/11/17 [History] Lisinopril [Zestril] 20 mg PO DAILY 05/11/17 [History] Melatonin [Melatonin] 5 mg PO HS 05/11/17 [History] Nystatin POWDER [Nystop] 1 gm TP QID 05/11/17 [History] Ondansetron ODT [Zofran ODT] 4 mg SL Q6HR PRN 05/11/17 [History] OxyCODONE Immed Rel [Roxicodone 5 MG] 5 mg PO Q4H PRN 05/11/17 [History] Sennosides [Senna] 8.6 mg PO DAILY 05/11/17 [History] Allergies No Known Allergies Allergy (Verified 10/07/15 10:27) - Constitutional Constitutional: Present: daytime sleepiness, fatigue. Absent: anorexia, chills - Cardiovascular Cardiovascular: Absent: chest pain, chest pain with activity, dyspnea - Respiratory Respiratory: Absent: cough, dyspnea - Gastrointestinal Gastrointestinal: Absent: abdominal pain - Musculoskeletal Musculoskeletal: Present: arthralgias, joint swelling, muscle weakness - Integumentary Integumentary: Present: non-healing lesions - Neurological Neurological: Present: abnormal gait, disequilibrium, focal weakness Physical Medicine - Exam - Constitutional Vitals: Temp Pulse Resp BP Pulse Ox 98.2 F 76 16 133/76 94 05/25/17 07:00 05/25/17 07:00 05/25/17 07:00 05/25/17 07:00 05/25/17 07:00 General appearance: obese Exam: Patient is alert, oriented and follows commands appropriately. She is very pleasant. - Head Head exam: Present: atraumatic, normal inspection Additional comments: No facial droop. - Respiratory Respiratory exam: Present: CTAB - Cardiovascular Cardiovascular exam: Present: RRR - GI/Abdominal GI/Abdominal exam: Present: normal bowel sounds, soft. Absent: tenderness - Extremities Exam Additional comments: Patient has a necrotic ulcer on the sole of her left foot. She has pain with palpation of the left knee along the medial joint line. She denies calf pain in the lower limbs. She has difficulty with manual motor testing of the lower limbs. She has volitional movement in her lower limbs. Evaluation of the right upper limb reveals motor strength 5/5. Left upper limb strength: SA 4/5, EF 3-/5 EF 3-/5, WF 2/5, WE 0/5, HI 2/5. - Neurological Exam Neurological exam: Present: alert, CN II-XII intact Additional comments: Reflexes are absent symmetrically in the bilateral upper and lower limbs. Physical Medicine - Results - Labs CBC & Chem 7: 05/23/17 05:20 05/23/17 05:20 Labs: Urine 05/23/17 Range/Units Unknown Urine Color Yellow (Yellow) Urine Clarity Turbid A (Clear) Urine pH 7.0 (5.0-8.0) pH Units Ur Specific [place] 1.020 (1.010-1.025) Urine Protein 30 H (Neg-Trace) mg/dL Urine Glucose (UA) Normal (Normal) mg/dL Consult Discharge Plan - Plan Referrals: Viktoria Diaz, FIELD REPRESENTATIVES DIRECTOR [Primary Care Provider] -
[2017-05-25] MEDS: Melatonin 3 MG TABLET PO SCH (20:23)
[2017-05-26] MEDS: Acetaminophen 325 MG TABLET PO PRN (04:34)
[2017-05-26] MEDS: *HR* Enoxaparin 80 MG/0.8 ML SYRINGE SQ SCH (05:33)
[2017-05-26] MEDS: *HR* OxyCODONE Immed Rel 5 MG TABLET PO PRN ×3 (08:07→20:21)
[2017-05-26] MEDS: Aspirin Enteric Coated 81 MG Tablet PO SCH (08:07)
[2017-05-26] MEDS: Sulfamethoxazole/Trimeth DS 1 EACH TABLET PO SCH ×2 (08:08→20:21)
[2017-05-26] MEDS: Sennosides 8.6 MG TABLET PO SCH (08:08)
[2017-05-26] MEDS: Furosemide 40 MG TABLET PO SCH ×2 (08:08→17:38)
[2017-05-26] MEDS: Lisinopril 20 MG TABLET PO SCH (08:08)
[2017-05-26] MEDS: Nystatin POWDER 30 GM BOTTLE TP SCH ×3 (08:08→20:29)
--- NOTE | 2017-05-26 10:51 | Internal Med Progress Note ---
Date of Encounter: 05/26/17 Time of Encounter: 10:49 - Assessment and plan (1) Acute ischemic right MCA stroke Current Visit: Yes Status: Acute Assessment and plan: Slow progress with her left hemiplegia. We are limited because of the lesion on the left heel so she cannot be weight bearing. The plan is to work on her truncal exercises, endurance in a chair etc. (2) Left hemiplegia Current Visit: Yes Status: Acute Assessment and plan: Slow improvement as above. (3) History of DVT of lower extremity Current Visit: Yes Status: Acute Assessment and plan: No signs of recurrence. (4) Popliteal artery occlusion, left Current Visit: Yes Status: Acute Assessment and plan: Good peripheral circulation. Incision healed nicely. (5) History of embolectomy Current Visit: Yes Status: Acute Assessment and plan: Incision healed nicely. Follow up with specialist June 16 for an ultrasound. (6) Presence of IVC filter Current Visit: Yes Status: Acute Assessment and plan: Follows up with the specialist June 16. (7) Atrial fibrillation Current Visit: Yes Status: Acute Assessment and plan: Rate controlled. No angina or CHF. Qualifiers: Atrial fibrillation type: chronic Qualified Code(s): I48.2 - Chronic atrial fibrillation (8) Hypertension Current Visit: Yes Status: Acute Assessment and plan: Under control. Qualifiers: Hypertension type: essential hypertension Qualified Code(s): I10 - Essential (primary) hypertension (9) Retroperitoneal hematoma Current Visit: Yes Status: Acute (10) Urinary tract infection Current Visit: Yes Status: Acute Assessment and plan: Currently being treated with Bactrim. Final culture showed Escherichia coli sensitive to all tested antibiotics Qualifiers: Urinary tract infection type: acute cystitis Hematuria presence: without hematuria Qualified Code(s): N30.00 - Acute cystitis without hematuria (11) Left breast mass Current Visit: Yes Status: Acute Assessment and plan: I discussed with patient and her today that she does have a left breast mass. She was not able to get an mammogram while in [place]. We will see whether we can attempt to get one here, I am not sure she can physically do it as she is not weightbearing on her left leg - Subjective Interval history: Patient denies any acute medical symptoms of chest pain, palpitations, dyspnea, or symptoms. She totally when she is total bowel movement she has pressure and pain but she does not recall whether her bowels move or not. Nurses report that her bowels have been moving at least a little bit every day. She really does not eat very much, has a poor appetite, he may think she declines to eat on any particular given day. The nurses have tried to accommodate her. Now she wants to eat watermelon The retail shift leader nurse states the patient is requiring pain medication about every 4 hours either oxycodone or with Tylenol. - Constitutional Vitals: Temp Pulse Resp BP Pulse Ox 97.7 F 87 18 158/72 96 05/26/17 07:25 05/26/17 07:25 05/26/17 07:25 05/26/17 07:25 05/26/17 07:25 General appearance: Present: A&O X 3, morbidly obese, pleasant, answers questions appropriately - Respiratory Respiratory exam: Present: CTAB - Cardiovascular Cardiovascular exam: Present: RRR, +S1, +S2 Additional comments: Appears to be regular rate and rhythm despite her underlying atrial fibrillation history - GI/Abdominal GI/Abdominal exam: Present: soft. Absent: mass, tenderness - Extremities Exam Extremities exam: Absent: calf tenderness, pedal edema Additional comments: Left heel shows 2-3 cm blister type lesion which is now starting to leak trace amount. - Neurological Exam Neurological exam: Present: CN II-XII intact, oriented X3. Absent: facial droop , speech deficit Additional comments: Left shoulder motion intact. She can flex at the elbow mildly against gravity with recruitment of shoulder as well. She can flex her finger slightly but cannot fully extend. Dorsiflexion and plantar flexion of foot appears intact as tested in bed. - Skin Additional comments: Blood blister type lesion on heel discussed as above Internal Medicine: Result - Labs CBC & Chem 7: 05/23/17 05:20 05/23/17 05:20 - ABG Interpretation ABG results: PT/INR, D-dimer PT 13.6 Seconds (9.4-12.1) H 05/12/17 05:05 - VTE Documentation of Mechanical Device: Graduated compression elastic hosiery Consult Discharge Plan - Plan Referrals: Viktoria Diaz, BARREL ASSEMBLER [Primary Care Provider] -
[2017-05-26] MEDS: Melatonin 3 MG TABLET PO SCH (20:21)
[2017-05-27] MEDS: *HR* OxyCODONE Immed Rel 5 MG TABLET PO PRN ×3 (02:19→20:56)
[2017-05-27] MEDS: *HR* Enoxaparin 80 MG/0.8 ML SYRINGE SQ SCH (06:23)
[2017-05-27] MEDS: Aspirin Enteric Coated 81 MG Tablet PO SCH (08:45)
[2017-05-27] MEDS: Sulfamethoxazole/Trimeth DS 1 EACH TABLET PO SCH ×2 (08:45→20:55)
[2017-05-27] MEDS: Lisinopril 20 MG TABLET PO SCH (08:45)
[2017-05-27] MEDS: Sennosides 8.6 MG TABLET PO SCH (08:45)
[2017-05-27] MEDS: Nystatin POWDER 30 GM BOTTLE TP SCH ×3 (08:46→20:55)
[2017-05-27] MEDS: Furosemide 40 MG TABLET PO SCH ×2 (08:46→18:59)
--- NOTE | 2017-05-27 11:18 | Internal Med Progress Note ---
Date of Encounter: 05/27/17 Time of Encounter: 11:13 - Assessment and plan (1) Acute ischemic right MCA stroke Current Visit: Yes Status: Acute Assessment and plan: She has shown some improvement in her left hemiplegia but very slowly. Continue with PT and OT. Medically stable. (2) Left hemiplegia Current Visit: Yes Status: Acute (3) History of DVT of lower extremity Current Visit: Yes Status: Acute (4) Popliteal artery occlusion, left Current Visit: Yes Status: Acute (5) History of embolectomy Current Visit: Yes Status: Acute (6) Presence of IVC filter Current Visit: Yes Status: Acute (7) Atrial fibrillation Current Visit: Yes Status: Acute Assessment and plan: No angina or CHF. Rate controlled. Vital stable. Qualifiers: Atrial fibrillation type: chronic Qualified Code(s): I48.2 - Chronic atrial fibrillation (8) Hypertension Current Visit: Yes Status: Acute Assessment and plan: Blood pressure is under good control. Qualifiers: Hypertension type: essential hypertension Qualified Code(s): I10 - Essential (primary) hypertension (9) Retroperitoneal hematoma Current Visit: Yes Status: Acute (10) Urinary tract infection Current Visit: Yes Status: Acute Qualifiers: Urinary tract infection type: acute cystitis Hematuria presence: without hematuria Qualified Code(s): N30.00 - Acute cystitis without hematuria (11) Left breast mass Current Visit: Yes Status: Acute - Subjective Interval history: She is not sure if she is getting better or not. She states it is difficult for her to use the wheelchair. She denies any chest pain, palpitation, dyspnea , abdominal pain. "I feel gassy though" but not a good clean out bowel movement yet. I watched her use the wheelchair with physical therapy today and she had difficulties navigating as if she was neglecting the left side. - Constitutional Vitals: Temp Pulse Resp BP Pulse Ox 97.6 F 76 16 105/64 94 05/27/17 07:12 05/27/17 07:12 05/27/17 07:12 05/27/17 08:56 05/27/17 07:12 General appearance: Present: A&O X 3, morbidly obese, pleasant, answers questions appropriately - Respiratory Respiratory exam: Present: CTAB - Cardiovascular Cardiovascular exam: Present: irregular rhythm, +S1, +S2. Absent: systolic murmur - GI/Abdominal GI/Abdominal exam: Present: soft. Absent: tenderness - Extremities Exam Additional comments: Mild edema of the left lower extremity and dorsum of the foot without significant tenderness. No redness or red streaks. I did not evaluate the heel today. - Neurological Exam Neurological exam: Present: oriented X3. Absent: facial droop, speech deficit Additional comments: She can wiggle her toes. I did not have her bend her knee today. Left hand grasp is much improved today, close to 50% range of motion. - Skin Additional comments: did not evaluate the foot blister today. Internal Medicine: Result - Labs CBC & Chem 7: 05/23/17 05:20 05/23/17 05:20 - ABG Interpretation ABG results: PT/INR, D-dimer PT 13.6 Seconds (9.4-12.1) H 05/12/17 05:05 - VTE Documentation of Mechanical Device: Graduated compression elastic hosiery Consult Discharge Plan - Plan Referrals: Viktoria Diaz, SENIOR BUSINESS BROKER [Primary Care Provider] -
[2017-05-27] MEDS: Melatonin 3 MG TABLET PO SCH (20:55)
[2017-05-28] MEDS: *HR* OxyCODONE Immed Rel 5 MG TABLET PO PRN ×2 (05:36→22:22)
[2017-05-28] MEDS: *HR* Enoxaparin 80 MG/0.8 ML SYRINGE SQ SCH (05:37)
[2017-05-28] MEDS: Nystatin POWDER 30 GM BOTTLE TP SCH ×3 (08:42→20:21)
[2017-05-28] MEDS: Aspirin Enteric Coated 81 MG Tablet PO SCH (08:47)
[2017-05-28] MEDS: Sennosides 8.6 MG TABLET PO SCH (08:47)
[2017-05-28] MEDS: Lisinopril 20 MG TABLET PO SCH (08:48)
[2017-05-28] MEDS: Furosemide 40 MG TABLET PO SCH ×2 (08:48→16:31)
[2017-05-28] MEDS: Sulfamethoxazole/Trimeth DS 1 EACH TABLET PO SCH ×2 (08:50→20:07)
--- NOTE | 2017-05-28 15:12 | Internal Med Progress Note ---
Date of Encounter: 05/28/17 Time of Encounter: 15:10 - Assessment and plan (1) Acute ischemic right MCA stroke Current Visit: Yes Status: Acute Assessment and plan: She has shown some improvement particular in the left hand grasp and motion at the left elbow. (2) Left hemiplegia Current Visit: Yes Status: Acute (3) History of DVT of lower extremity Current Visit: Yes Status: Acute (4) Popliteal artery occlusion, left Current Visit: Yes Status: Acute (5) History of embolectomy Current Visit: Yes Status: Acute (6) Presence of IVC filter Current Visit: Yes Status: Acute (7) Atrial fibrillation Current Visit: Yes Status: Chronic Assessment and plan: Chronic atrial fibrillation. No angina or CHF. Qualifiers: Atrial fibrillation type: chronic Qualified Code(s): I48.2 - Chronic atrial fibrillation (8) Hypertension Current Visit: Yes Status: Acute Assessment and plan: Blood pressure is under good control. Qualifiers: Hypertension type: essential hypertension Qualified Code(s): I10 - Essential (primary) hypertension (9) Retroperitoneal hematoma Current Visit: Yes Status: Acute (10) Urinary tract infection Current Visit: Yes Status: Acute Assessment and plan: Being treated with Bactrim. No acute symptoms. Qualifiers: Urinary tract infection type: acute cystitis Hematuria presence: without hematuria Qualified Code(s): N30.00 - Acute cystitis without hematuria (11) Left breast mass Current Visit: Yes Status: Acute - Subjective Interval history: Patient states she is tired from doing therapy today. Nurses report she has been up in a chair since the morning, now back in bed. She denies any cardiac type chest pain, palpitation, respiratory symptoms, GI or symptoms. It is reported she had a large bowel movement yesterday. She is not sure she getting any stronger or not. No new symptoms. She thinks she is eating plenty. - Constitutional Vitals: Temp Pulse Resp BP Pulse Ox 98.0 F 83 14 145/68 94 05/28/17 08:00 05/28/17 08:00 05/28/17 05:35 05/28/17 08:00 05/28/17 08:00 General appearance: Present: A&O X 3, morbidly obese, pleasant, answers questions appropriately - Respiratory Respiratory exam: Present: CTAB - Cardiovascular Cardiovascular exam: Present: irregular rhythm, +S1, +S2. Absent: systolic murmur - GI/Abdominal GI/Abdominal exam: Present: soft. Absent: tenderness - Extremities Exam Additional comments: Right lower extremity is wrapped in an Yassine wrap to help control edema. Left lower extremity is in a protective binder to keep her off her left heel. I did not evaluate the heel today. - Neurological Exam Neurological exam: Present: alert, CN II-XII intact, oriented X3 Additional comments: Left upper extremity shows 50% of expected hand grasp. She is able to flex at the elbow to nearly touch her fingers to her nose. Shoulder is intact. She can wiggle her left foot/toes. I did not check her quad strength. Internal Medicine: Result - Labs CBC & Chem 7: 05/23/17 05:20 05/23/17 05:20 - ABG Interpretation ABG results: PT/INR, D-dimer PT 13.6 Seconds (9.4-12.1) H 05/12/17 05:05 - VTE Documentation of Mechanical Device: Graduated compression elastic hosiery Consult Discharge Plan - Plan Referrals: Viktoria Diaz, ASH WORKER [Primary Care Provider] -
[2017-05-28] MEDS: Melatonin 3 MG TABLET PO SCH (20:07)
[2017-05-29] MEDS: *HR* Enoxaparin 80 MG/0.8 ML SYRINGE SQ SCH (05:09)
[2017-05-29] MEDS: *HR* OxyCODONE Immed Rel 5 MG TABLET PO PRN ×3 (05:10→20:24)
[2017-05-29] MEDS: Lisinopril 20 MG TABLET PO SCH (08:07)
[2017-05-29] MEDS: Sennosides 8.6 MG TABLET PO SCH (08:07)
[2017-05-29] MEDS: Sulfamethoxazole/Trimeth DS 1 EACH TABLET PO SCH ×2 (08:07→20:25)
[2017-05-29] MEDS: Furosemide 40 MG TABLET PO SCH ×2 (08:07→17:50)
[2017-05-29] MEDS: Aspirin Enteric Coated 81 MG Tablet PO SCH (08:07)
[2017-05-29] MEDS: Nystatin POWDER 30 GM BOTTLE TP SCH ×3 (08:08→20:25)
--- NOTE | 2017-05-29 11:52 | Internal Med Progress Note ---
Date of Encounter: 05/29/17 Time of Encounter: 11:47 - Assessment and plan (1) Acute ischemic right MCA stroke Current Visit: Yes Status: Acute Assessment and plan: Continued dense left diplegia. Did show some improvement. She is tired today. Continue PT OT RT (2) Left hemiplegia Current Visit: Yes Status: Acute (3) History of DVT of lower extremity Current Visit: Yes Status: Acute (4) Popliteal artery occlusion, left Current Visit: Yes Status: Acute (5) History of embolectomy Current Visit: Yes Status: Acute (6) Presence of IVC filter Current Visit: Yes Status: Acute (7) Atrial fibrillation Current Visit: Yes Status: Chronic Assessment and plan: No angina or CHF. Is rate control. Qualifiers: Atrial fibrillation type: chronic Qualified Code(s): I48.2 - Chronic atrial fibrillation (8) Hypertension Current Visit: Yes Status: Acute Assessment and plan: Hypertension controlled Qualifiers: Hypertension type: essential hypertension Qualified Code(s): I10 - Essential (primary) hypertension (9) Retroperitoneal hematoma Current Visit: Yes Status: Acute (10) Urinary tract infection Current Visit: Yes Status: Acute Qualifiers: Urinary tract infection type: acute cystitis Hematuria presence: without hematuria Qualified Code(s): N30.00 - Acute cystitis without hematuria (11) Left breast mass Current Visit: Yes Status: Acute - Subjective Interval history: Patient states she is tired from doing therapy today. Nurses report she has been up in a chair since the morning, now back in bed. She denies any cardiac type chest pain, palpitation, respiratory symptoms, GI or symptoms. It is reported she had a large bowel movement yesterday. She is not sure she getting any stronger or not. No new symptoms. She thinks she is eating plenty. - Constitutional Vitals: Temp Pulse Resp BP Pulse Ox 97.9 F 81 18 133/74 95 05/29/17 07:10 05/29/17 07:10 05/29/17 07:10 05/29/17 07:10 05/29/17 07:10 General appearance: Present: A&O X 3, morbidly obese, pleasant, answers questions appropriately - Respiratory Respiratory exam: Present: CTAB. Absent: respiratory distress - Cardiovascular Cardiovascular exam: Present: irregular rhythm, +S1, +S2. Absent: systolic murmur - GI/Abdominal GI/Abdominal exam: Present: soft. Absent: mass, tenderness - Extremities Exam Additional comments: Left lower extremity is in the protective boot. Foot is warm and dry. Right lower extremity is in the Yassine wrap to help control edema. Appears to have good perfusion. Internal Medicine: Result - Labs CBC & Chem 7: 05/23/17 05:20 05/23/17 05:20 - ABG Interpretation ABG results: PT/INR, D-dimer PT 13.6 Seconds (9.4-12.1) H 05/12/17 05:05 - VTE Documentation of Mechanical Device: Graduated compression elastic hosiery Consult Discharge Plan - Plan Referrals: Viktoria Diaz, TUBE FORMER OPERATOR [Primary Care Provider] -
[2017-05-29] MEDS: Melatonin 3 MG TABLET PO SCH (20:25)
[2017-05-30] MEDS: *HR* Enoxaparin 80 MG/0.8 ML SYRINGE SQ SCH (05:09)
[2017-05-30 05:32] LABS: Basophils % 0.4 %; Eosinophils # 0.2 K/mcL (0.0-0.6); Eosinophils % 2.8 %; Hematocrit 27.3 % (35.3-44.9); Immature Granulocytes % 0.2 % (0-4); Lymphocytes % 37.4 %; Mean Corpuscular Hemoglobin 30.2 pg (28.0-33.3); Mean Corpuscular Volume 91.6 fL (83.0-100.0); Mean Platelet Volume 9.7 fL (9.4-12.4); Monocytes # 0.8 K/mcL (0.0-1.3); Monocytes % 15.7 %; Neutrophils # 2.3 K/mcL (1.6-8.9); Platelet Count 185 K/mcL (140-400); Red Blood Count 2.98 M/mcL (3.82-4.97); Segmented Neutrophils % 43.5 %
[2017-05-30 05:45] LABS: BUN/Creatinine Ratio 15 (6-26); Blood Urea Nitrogen 15 mg/dL (7-20); Calcium 9.1 mg/dL (8.6-10.8); Carbon Dioxide 28 mEq/L (19-29); Chloride 95 mEq/L (98-109); Glucose 105 mg/dL (70-99); Osmolality,Calculated 279 (280-300); Potassium 4.6 mEq/L (3.5-4.5); Sodium 134 mEq/L (136-145); eGFR For African Americans > 60 (> 60); eGFR For Non-African Americans 55 (> 60)
[2017-05-30] MEDS: Furosemide 40 MG TABLET PO SCH ×2 (08:34→17:11)
[2017-05-30] MEDS: Sulfamethoxazole/Trimeth DS 1 EACH TABLET PO SCH ×2 (08:34→20:18)
[2017-05-30] MEDS: Sennosides 8.6 MG TABLET PO SCH (08:34)
[2017-05-30] MEDS: Aspirin Enteric Coated 81 MG Tablet PO SCH (08:34)
[2017-05-30] MEDS: Lisinopril 20 MG TABLET PO SCH (08:34)
[2017-05-30] MEDS: Nystatin POWDER 30 GM BOTTLE TP SCH ×3 (08:35→22:12)
--- NOTE | 2017-05-30 11:29 | Internal Med Progress Note ---
Date of Encounter: 05/30/17 Time of Encounter: 11:26 - Assessment and plan (1) Acute ischemic right MCA stroke Current Visit: Yes Status: Acute Assessment and plan: Continuing with PT and OT for left diplegia. She has left neglect and they are working on that as well. Decubitus of the left heel limits weightbearing on that side. Followed by wound clinic. (2) Left hemiplegia Current Visit: Yes Status: Acute Assessment and plan: As above. (3) History of DVT of lower extremity Current Visit: Yes Status: Acute (4) Popliteal artery occlusion, left Current Visit: Yes Status: Acute (5) History of embolectomy Current Visit: Yes Status: Acute (6) Presence of IVC filter Current Visit: Yes Status: Acute (7) Atrial fibrillation Current Visit: Yes Status: Chronic Assessment and plan: No angina or CHF. Rate controlled. Qualifiers: Atrial fibrillation type: chronic Qualified Code(s): I48.2 - Chronic atrial fibrillation (8) Hypertension Current Visit: Yes Status: Acute Assessment and plan: Blood pressure is controlled. Qualifiers: Hypertension type: essential hypertension Qualified Code(s): I10 - Essential (primary) hypertension (9) Retroperitoneal hematoma Current Visit: Yes Status: Acute (10) Urinary tract infection Current Visit: Yes Status: Acute Qualifiers: Urinary tract infection type: acute cystitis Hematuria presence: without hematuria Qualified Code(s): N30.00 - Acute cystitis without hematuria (11) Left breast mass Current Visit: Yes Status: Acute - Subjective Interval history: Patient's biggest complaint is that she feels like she needs to move her bowels and feels a lot of pressure in the rectal area. She denies any cardiac or respiratory symptoms. She has been up to occupational therapy and they are working on her left-sided neglect. Wound clinic has re-evaluated her left heel today. Since the blister is deflated they have been using Betadine to toughen the skin. The wound care nurse feels a soft area posteriorly. There is no drainage. They are going to use Betadine twice a day and use a padded foot protector with an open heel portion. - Constitutional Vitals: Temp Pulse Resp BP Pulse Ox 98.1 F 86 16 114/76 94 05/30/17 07:00 05/30/17 10:14 05/30/17 10:14 05/30/17 10:14 05/30/17 10:14 General appearance: Present: A&O X 3, morbidly obese, pleasant, answers questions appropriately - Respiratory Respiratory exam: Present: CTAB - Cardiovascular Cardiovascular exam: Present: irregular rhythm, +S1, +S2. Absent: systolic murmur - GI/Abdominal GI/Abdominal exam: Present: soft, no peritoneal signs. Absent: mass, tenderness - Extremities Exam Additional comments: Left lower extremity shows well-healed medial scar from thrombectomy. The left heel is 2-3 cm in diameter, skin is intact from the blister but flattened now. Posterior portion feels soft per the wound nurse. She still has edema of both lower extremities, puffiness on the dorsum of her feet. No linear streaks or significant erythema. - Neurological Exam Neurological exam: Present: CN II-XII intact, oriented X3 Additional comments: She tries to flex at the elbow and cannot quite get her hand to her nose. Her hand grasp is about 50% of expected. I did not check lower extremity strength today. Internal Medicine: Result - Labs CBC & Chem 7: 05/30/17 05:10 05/30/17 05:10 Labs: Short CBC 05/30/17 Range/Units 05:10 WBC 5.3 (4.3-11.1) K/mcL Hgb 9.0 L (11.5-15.4) g/dL Hct 27.3 L (35.3-44.9) % Plt Count 185 (140-400) K/mcL Neutrophils # 2.3 (1.6-8.9) K/mcL BMP 05/30/17 05:10 Sodium 134 L Potassium 4.6 H Chloride 95 L Carbon Dioxide 28 BUN 15 Creatinine 0.97 Glucose 105 H Calcium 9.1 Labs have been reviewed. Relatively stable. No acute changes. - ABG Interpretation ABG results: PT/INR, D-dimer PT 13.6 Seconds (9.4-12.1) H 05/12/17 05:05 - VTE Documentation of Mechanical Device: Graduated compression elastic hosiery Consult Discharge Plan - Plan Referrals: Viktoria Diaz, OUTCOMES SPECIALIST [Primary Care Provider] -
[2017-05-30] MEDS: Bisacodyl 10 MG RECTAL SUPPOSITORY RC PRN (11:35)
[2017-05-30] MEDS: *HR* OxyCODONE Immed Rel 5 MG TABLET PO PRN ×3 (12:49→23:54)
[2017-05-30] MEDS: Melatonin 3 MG TABLET PO SCH (20:20)
[2017-05-31] MEDS: *HR* OxyCODONE Immed Rel 5 MG TABLET PO PRN ×4 (04:53→22:15)
[2017-05-31] MEDS: *HR* Enoxaparin 80 MG/0.8 ML SYRINGE SQ SCH (04:54)
[2017-05-31] MEDS: Acetaminophen 325 MG TABLET PO PRN (08:07)
[2017-05-31] MEDS: Sulfamethoxazole/Trimeth DS 1 EACH TABLET PO SCH (08:07)
[2017-05-31] MEDS: Nystatin POWDER 30 GM BOTTLE TP SCH ×3 (08:07→21:07)
[2017-05-31] MEDS: Lisinopril 20 MG TABLET PO SCH (08:07)
[2017-05-31] MEDS: Aspirin Enteric Coated 81 MG Tablet PO SCH (08:07)
[2017-05-31] MEDS: Furosemide 40 MG TABLET PO SCH ×2 (08:07→18:03)
[2017-05-31] MEDS: Sennosides 8.6 MG TABLET PO SCH (08:07)
[2017-05-31] MEDS: Ipratropium/Albuterol Neb 3 ML IH PRN (08:15)
[2017-05-31] MEDS ORDERED: MOM Conc 10 ML UD.LIQ PO ONE (17:11)
--- NOTE | 2017-05-31 17:14 | Internal Med Progress Note ---
Date of Encounter: 05/31/17 Time of Encounter: 17:12 - Assessment and plan (1) Acute ischemic right MCA stroke Current Visit: Yes Status: Acute Assessment and plan: Continue with PT, OT, RT and speech. Showing some improvement with left hemiplegia (2) Left hemiplegia Current Visit: Yes Status: Acute (3) History of DVT of lower extremity Current Visit: Yes Status: Acute (4) Popliteal artery occlusion, left Current Visit: Yes Status: Acute (5) History of embolectomy Current Visit: Yes Status: Acute (6) Presence of IVC filter Current Visit: Yes Status: Acute (7) Atrial fibrillation Current Visit: Yes Status: Chronic Assessment and plan: No angina or CHF Qualifiers: Atrial fibrillation type: chronic Qualified Code(s): I48.2 - Chronic atrial fibrillation (8) Hypertension Current Visit: Yes Status: Acute Assessment and plan: Blood pressure under relatively good control. Qualifiers: Hypertension type: essential hypertension Qualified Code(s): I10 - Essential (primary) hypertension (9) Retroperitoneal hematoma Current Visit: Yes Status: Acute (10) Urinary tract infection Current Visit: Yes Status: Resolved Assessment and plan: She has finished her 7 days of Bactrim and it will be discontinued Qualifiers: Urinary tract infection type: acute cystitis Hematuria presence: without hematuria Qualified Code(s): N30.00 - Acute cystitis without hematuria (11) Left breast mass Current Visit: Yes Status: Acute (12) Blister Current Visit: Yes Status: Acute Assessment and plan: Continued blister on left heel. Followed by wound clinic. - Subjective Interval history: Patient denies any cardiac type chest pain or palpitations. She states she has not had a good bowel movement, she has had some smears despite the suppository yesterday. No new change in her left hemiplegia. - Constitutional Vitals: Temp Pulse Resp BP Pulse Ox 98.0 F 87 14 129/62 94 05/31/17 07:00 05/31/17 07:00 05/31/17 07:00 05/31/17 07:00 05/31/17 07:00 General appearance: Present: A&O X 3, morbidly obese, pleasant, answers questions appropriately - Respiratory Respiratory exam: Present: CTAB - Cardiovascular Cardiovascular exam: Present: irregular rhythm, +S1, +S2. Absent: systolic murmur - GI/Abdominal GI/Abdominal exam: Present: soft. Absent: mass, tenderness - Extremities Exam Additional comments: Edema both lower extremities including the dorsum of her feet - Neurological Exam Additional comments: Continued dense left-sided hemiplegia . Hand grasp, range of motion at the elbow are unchanged today from yesterday - Skin Additional comments: Blister-type decubitus left heel starting to reaccumulate some fluid. Nontender. No linear streaks or secondary infection Internal Medicine: Result - Labs CBC & Chem 7: 05/30/17 05:10 05/30/17 05:10 - ABG Interpretation ABG results: PT/INR, D-dimer PT 13.6 Seconds (9.4-12.1) H 05/12/17 05:05 - VTE Documentation of Mechanical Device: Graduated compression elastic hosiery Consult Discharge Plan - Plan Referrals: Viktoria Diaz, ANALYST BUSINESS ANALYSIS [Primary Care Provider] -
[2017-05-31] MEDS: Melatonin 3 MG TABLET PO SCH (21:06)
[2017-06-01] MEDS: Acetaminophen 325 MG TABLET PO PRN (02:26)
[2017-06-01] MEDS: *HR* OxyCODONE Immed Rel 5 MG TABLET PO PRN ×2 (02:26→21:17)
[2017-06-01] MEDS: *HR* Enoxaparin 80 MG/0.8 ML SYRINGE SQ SCH (05:38)
[2017-06-01] MEDS: Lisinopril 20 MG TABLET PO SCH (08:10)
[2017-06-01] MEDS: Furosemide 40 MG TABLET PO SCH ×2 (08:13→18:22)
[2017-06-01] MEDS: Sennosides 8.6 MG TABLET PO SCH (08:13)
[2017-06-01] MEDS: Nystatin POWDER 30 GM BOTTLE TP SCH ×2 (08:13→16:09)
[2017-06-01] MEDS: Aspirin Enteric Coated 81 MG Tablet PO SCH (08:13)
[2017-06-01] MEDS: Ipratropium/Albuterol Neb 3 ML IH PRN (09:08)
--- NOTE | 2017-06-01 11:55 | Internal Med Progress Note ---
Date of Encounter: 06/01/17 Time of Encounter: 11:52 - Assessment and plan (1) Acute ischemic right MCA stroke Current Visit: Yes Status: Acute Assessment and plan: Continues with PT and OT and RT. Small improvement of her left hemiplegia with the past few days. Therapy is working on transfers and trunk stability. (2) Left hemiplegia Current Visit: Yes Status: Acute (3) History of DVT of lower extremity Current Visit: Yes Status: Acute (4) Popliteal artery occlusion, left Current Visit: Yes Status: Acute (5) History of embolectomy Current Visit: Yes Status: Acute (6) Presence of IVC filter Current Visit: Yes Status: Acute (7) Atrial fibrillation Current Visit: Yes Status: Chronic Assessment and plan: No angina or CHF. Qualifiers: Atrial fibrillation type: chronic Qualified Code(s): I48.2 - Chronic atrial fibrillation (8) Hypertension Current Visit: Yes Status: Acute Assessment and plan: Has been under good control. Today a bit on the low side. Will follow. Qualifiers: Hypertension type: essential hypertension Qualified Code(s): I10 - Essential (primary) hypertension (9) Retroperitoneal hematoma Current Visit: Yes Status: Acute (10) Urinary tract infection Current Visit: Yes Status: Resolved Qualifiers: Urinary tract infection type: acute cystitis Hematuria presence: without hematuria Qualified Code(s): N30.00 - Acute cystitis without hematuria (11) Left breast mass Current Visit: Yes Status: Acute (12) Blister Current Visit: Yes Status: Acute Assessment and plan: No significant change today. Dr. Lujan to evaluate from wound clinic. (13) Constipation Current Visit: Yes Status: Acute Assessment and plan: Still not having a good clean out the bowel movement. She is having brown smears. We will add fleets enema after her therapies today. She has been on stool softeners, laxatives, milk of magnesia. Her abdomen examination is unremarkable Qualifiers: Constipation type: other constipation type Qualified Code(s): K59.09 - Other constipation - Subjective Interval history: Patient denies any cardiac symptoms. She does have a little bit of wheeze today which is not unusual she says. Her biggest complaint is that she has pain in the rectal area as if she needs to have a bowel movement, but nothing has been coming. Small smears are documented. She has not had a good clean out bowel movement. - Constitutional Vitals: Temp Pulse Resp BP Pulse Ox 97.4 F L 74 16 94/63 94 06/01/17 07:00 06/01/17 07:00 06/01/17 09:46 06/01/17 11:35 06/01/17 07:00 General appearance: Present: A&O X 3, morbidly obese, pleasant, answers questions appropriately - Respiratory Additional comments: Slight end expiratory wheeze noted. No crackles. No respiratory distress - Cardiovascular Cardiovascular exam: Present: irregular rhythm, +S1, +S2. Absent: systolic murmur - GI/Abdominal GI/Abdominal exam: Present: soft, no peritoneal signs. Absent: tenderness - Extremities Exam Additional comments: Continue edema both lower extremities. Right is in an Yassine wrap, left protective boot - Neurological Exam Neurological exam: Present: CN II-XII intact. Absent: facial droop, speech deficit Additional comments: Continued left hemiplegia of the left upper extremity with about 50% of pain grasp and still not able to touch her nose with flexion. Continued left lower extremity hemiplegia but I did not evaluate strength today. - Skin Additional comments: Left heel continues to show a small "blood blister" which is intact with fluid and being painted with Betadine. Internal Medicine: Result - Labs CBC & Chem 7: 05/30/17 05:10 05/30/17 05:10 - ABG Interpretation ABG results: PT/INR, D-dimer PT 13.6 Seconds (9.4-12.1) H 05/12/17 05:05 - VTE Documentation of Mechanical Device: Graduated compression elastic hosiery Consult Discharge Plan - Plan Referrals: Viktoria Diaz SETUP TECHNICIAN [Primary Care Provider] -
[2017-06-01] MEDS: Melatonin 3 MG TABLET PO SCH (21:08)
[2017-06-02] MEDS: Nystatin POWDER 30 GM BOTTLE TP SCH ×4 (00:03→21:30)
[2017-06-02] MEDS: *HR* OxyCODONE Immed Rel 5 MG TABLET PO PRN ×3 (01:31→21:24)
[2017-06-02] MEDS: *HR* Enoxaparin 80 MG/0.8 ML SYRINGE SQ SCH (05:38)
[2017-06-02] MEDS: Furosemide 40 MG TABLET PO SCH ×2 (08:38→17:39)
[2017-06-02] MEDS: Sennosides 8.6 MG TABLET PO SCH (08:38)
[2017-06-02] MEDS: Aspirin Enteric Coated 81 MG Tablet PO SCH (08:38)
[2017-06-02] MEDS: Lisinopril 20 MG TABLET PO SCH (08:38)
[2017-06-02] MEDS: Melatonin 3 MG TABLET PO SCH (21:23)
--- NOTE | 2017-06-02 23:06 | Internal Med Progress Note ---
Date of Encounter: 06/02/17 Time of Encounter: 23:01 - Assessment and plan (1) Acute ischemic right MCA stroke Current Visit: Yes Status: Acute Assessment and plan: She continues with her left hemiplegia and making minimal improvements at this point. The problem is the order to be nonweightbearing on the left heel. Wound clinic and Dr. Lujan is trying to fashion some type of device so that she can bear weight on the ball of her foot and forefoot area and avoid the heel. (2) Left hemiplegia Current Visit: Yes Status: Acute (3) History of DVT of lower extremity Current Visit: Yes Status: Acute (4) Popliteal artery occlusion, left Current Visit: Yes Status: Acute (5) History of embolectomy Current Visit: Yes Status: Acute (6) Presence of IVC filter Current Visit: Yes Status: Acute (7) Atrial fibrillation Current Visit: Yes Status: Chronic Assessment and plan: No angina or CHF. She is rate controlled. Qualifiers: Atrial fibrillation type: chronic Qualified Code(s): I48.2 - Chronic atrial fibrillation (8) Hypertension Current Visit: Yes Status: Acute Assessment and plan: Blood pressure is under adequate control. Qualifiers: Hypertension type: essential hypertension Qualified Code(s): I10 - Essential (primary) hypertension (9) Retroperitoneal hematoma Current Visit: Yes Status: Acute (10) Urinary tract infection Current Visit: Yes Status: Resolved Qualifiers: Urinary tract infection type: acute cystitis Hematuria presence: without hematuria Qualified Code(s): N30.00 - Acute cystitis without hematuria (11) Left breast mass Current Visit: Yes Status: Acute (12) Blister Current Visit: Yes Status: Acute Assessment and plan: As noted above. (13) Constipation Current Visit: Yes Status: Acute Assessment and plan: continue with bowel regimen. She was not able to push and had to be disimpacted. Qualifiers: Constipation type: other constipation type Qualified Code(s): K59.09 - Other constipation - Subjective Interval history: Patient no acute symptoms. No chest pain or palpitations. Her bowels finally moved on Tuesday but had to be disimpacted. It was reported she does not have much power to push out stool. - Constitutional Vitals: Temp Pulse Resp BP Pulse Ox 99.8 F H 83 16 135/50 95 06/02/17 19:29 06/02/17 19:29 06/02/17 19:29 06/02/17 19:29 06/02/17 19:29 General appearance: Present: A&O X 3, morbidly obese, pleasant, answers questions appropriately - Respiratory Respiratory exam: Present: CTAB - Cardiovascular Cardiovascular exam: Present: irregular rhythm, +S1, +S2 - GI/Abdominal GI/Abdominal exam: Present: soft. Absent: tenderness - Extremities Exam Additional comments: Continued left-sided hemiplegia without significant change since yesterday. - Skin Additional comments: The blister lesion on the left heel is starting to get smaller and more firm. Was a evaluated by Dr. Lujan and wound clinic today. Internal Medicine: Result - Labs CBC & Chem 7: 05/30/17 05:10 05/30/17 05:10 - ABG Interpretation ABG results: PT/INR, D-dimer PT 13.6 Seconds (9.4-12.1) H 05/12/17 05:05 - VTE Documentation of Mechanical Device: Graduated compression elastic hosiery Consult Discharge Plan - Plan Referrals: Viktoria Diaz, SUPERVISOR PASTE MIXING [Primary Care Provider] -
[2017-06-03] MEDS: *HR* Enoxaparin 80 MG/0.8 ML SYRINGE SQ SCH (05:35)
[2017-06-03] MEDS: *HR* OxyCODONE Immed Rel 5 MG TABLET PO PRN ×3 (05:36→20:18)
[2017-06-03] MEDS: Furosemide 40 MG TABLET PO SCH ×2 (09:01→18:16)
[2017-06-03] MEDS: Aspirin Enteric Coated 81 MG Tablet PO SCH (09:02)
[2017-06-03] MEDS: Sennosides 8.6 MG TABLET PO SCH (09:02)
[2017-06-03] MEDS: Nystatin POWDER 30 GM BOTTLE TP SCH ×3 (09:02→20:19)
[2017-06-03] MEDS: Lisinopril 20 MG TABLET PO SCH (09:02)
[2017-06-03] MEDS: Ipratropium/Albuterol Neb 3 ML IH PRN (09:29)
[2017-06-03] MEDS: APIXABAN 5 MG TABLET PO SCH (20:18)
[2017-06-03] MEDS: Acetaminophen 325 MG TABLET PO PRN (20:19)
[2017-06-03] MEDS: Melatonin 3 MG TABLET PO SCH (20:19)
--- NOTE | 2017-06-04 08:28 | Internal Med Progress Note ---
Date of Encounter: 06/04/17 Time of Encounter: 08:25 - Assessment and plan (1) Acute ischemic right MCA stroke Current Visit: Yes Status: Acute Assessment and plan: Patient is stable at the present time continue present treatment rehab is actively involved in management is per rehab recommendations (2) History of DVT of lower extremity Current Visit: Yes Status: Acute Assessment and plan: History of acute DVT for responsible like me she is on anticoagulation medication has been adjusted she is stable at the present time in no acute issues .. Continue present medication (3) Hypertension Current Visit: Yes Status: Chronic Assessment and plan: Have high blood pressure is stable continue present medication Qualifiers: Hypertension type: essential hypertension Qualified Code(s): I10 - Essential (primary) hypertension (4) Hyponatremia Current Visit: Yes Status: Acute Assessment and plan: h noted that there is a mild drop in sodium 134. Repeat lab has been ordered. Further treatment as needed will follow-up - Subjective Interval history: Elderly white female seen for the 1st time has been here for some time with multiple comorbidities and medical issues. At the present time she is feeling her baseline. She denies any compliance. No complaints of shortness of breath chessmen Nausea vomiting and diarrhea. She is unable to get up and bear weight because of ulcer on her heel. She requires few nursing staff to help her to move. Family and social welfare research worker are working on the group home placement or home placement. - Constitutional Vitals: Temp Pulse Resp BP Pulse Ox 97.9 F 82 18 115/62 96 06/03/17 19:17 06/03/17 19:17 06/03/17 19:17 06/03/17 19:17 06/03/17 19:17 General appearance: Present: A&O X 2, A&O X 3, morbidly obese, pleasant, answers questions appropriately. Absent: no acute distress - Neck Neck exam general surgery: Present: supple - Respiratory Respiratory exam: Present: CTAB. Absent: accessory muscle use, chest wall tenderness, respiratory distress - Cardiovascular Cardiovascular exam: Present: RRR. Absent: JVD - GI/Abdominal GI/Abdominal exam: Present: normal bowel sounds, soft. Absent: distended, rebound Internal Medicine: Result - Labs CBC & Chem 7: 05/30/17 05:10 05/30/17 05:10 - ABG Interpretation ABG results: PT/INR, D-dimer PT 13.6 Seconds (9.4-12.1) H 05/12/17 05:05 - VTE Documentation of Mechanical Device: Graduated compression elastic hosiery Consult Discharge Plan - Plan Referrals: Viktoria Diaz, STEWARD/STEWARDESS DECK [Primary Care Provider] -
[2017-06-04] MEDS: Lisinopril 20 MG TABLET PO SCH (08:37)
[2017-06-04] MEDS: Nystatin POWDER 30 GM BOTTLE TP SCH ×3 (08:38→21:17)
[2017-06-04] MEDS: APIXABAN 5 MG TABLET PO SCH ×2 (08:38→21:15)
[2017-06-04] MEDS: Aspirin Enteric Coated 81 MG Tablet PO SCH (08:38)
[2017-06-04] MEDS: *HR* OxyCODONE Immed Rel 5 MG TABLET PO PRN ×3 (08:38→21:15)
[2017-06-04] MEDS: Sennosides 8.6 MG TABLET PO SCH (08:38)
[2017-06-04] MEDS: Furosemide 40 MG TABLET PO SCH ×2 (08:38→18:40)
[2017-06-04] MEDS: Melatonin 3 MG TABLET PO SCH (21:14)
[2017-06-05 05:40] LABS: BUN/Creatinine Ratio 27 (6-26); Blood Urea Nitrogen 24 mg/dL (7-20); Calcium 9.3 mg/dL (8.6-10.8); Carbon Dioxide 29 mEq/L (19-29); Chloride 97 mEq/L (98-109); Glucose 119 mg/dL (70-99); Osmolality,Calculated 283 (280-300); Potassium 4.7 mEq/L (3.5-4.5); Sodium 134 mEq/L (136-145); eGFR For African Americans > 60 (> 60); eGFR For Non-African Americans > 60 (> 60)
[2017-06-05] MEDS: *HR* OxyCODONE Immed Rel 5 MG TABLET PO PRN ×3 (05:43→20:46)
[2017-06-05] MEDS: APIXABAN 5 MG TABLET PO SCH ×2 (09:29→20:47)
[2017-06-05] MEDS: Sennosides 8.6 MG TABLET PO SCH (09:29)
[2017-06-05] MEDS: Aspirin Enteric Coated 81 MG Tablet PO SCH (09:29)
[2017-06-05] MEDS: Furosemide 40 MG TABLET PO SCH ×2 (09:29→16:50)
[2017-06-05] MEDS: Lisinopril 20 MG TABLET PO SCH (09:29)
--- NOTE | 2017-06-05 11:48 | Internal Med Progress Note ---
Date of Encounter: 06/05/17 Time of Encounter: 11:46 - Assessment and plan (1) Acute ischemic right MCA stroke Current Visit: Yes Status: Acute (2) History of DVT of lower extremity Current Visit: Yes Status: Acute (3) Hypertension Current Visit: Yes Status: Chronic Qualifiers: Hypertension type: essential hypertension Qualified Code(s): I10 - Essential (primary) hypertension (4) Hyponatremia Current Visit: Yes Status: Acute - Subjective Interval history: Elderly white female seen for the 1st time has been here for some time with multiple comorbidities and medical issues. At the present time she is feeling her baseline. She denies any compliance. No complaints of shortness of breath chessmen Nausea vomiting and diarrhea. She is unable to get up and bear weight because of ulcer on her heel. She requires few nursing staff to help her to move. Family and social services designee are working on the long term placement or home placement. No new complains today . Feels some what Hot today .No burning of urine .Hand mildly swollen on left which is her stroke side - Constitutional Vitals: Temp Pulse Resp BP Pulse Ox 98.0 F 77 18 125/69 95 06/05/17 07:06 06/05/17 07:06 06/05/17 07:06 06/05/17 07:06 06/05/17 07:06 General appearance: Present: A&O X 2, A&O X 3, morbidly obese, pleasant, answers questions appropriately. Absent: no acute distress - Respiratory Respiratory exam: Present: CTAB. Absent: respiratory distress, rhonchi, stridor , wheezes, tachypnea - Cardiovascular Cardiovascular exam: Present: RRR. Absent: gallop, JVD - GI/Abdominal GI/Abdominal exam: Present: normal bowel sounds, soft. Absent: distended, guarding, tenderness - Skin Additional comments: no new change has ulcer on her right heel Internal Medicine: Result - Labs CBC & Chem 7: 05/30/17 05:10 06/05/17 05:10 Labs: BMP 06/05/17 05:10 Sodium 134 L Potassium 4.7 H Chloride 97 L Carbon Dioxide 29 BUN 24 H Creatinine 0.88 Glucose 119 H Calcium 9.3 - ABG Interpretation ABG results: PT/INR, D-dimer PT 13.6 Seconds (9.4-12.1) H 05/12/17 05:05 - VTE Documentation of Mechanical Device: Graduated compression elastic hosiery Consult Discharge Plan - Plan Referrals: Viktoria Diaz, LITIGATION SERVICES MANAGER [Primary Care Provider] -
[2017-06-05] MEDS: Nystatin POWDER 30 GM BOTTLE TP SCH ×3 (13:51→20:49)
[2017-06-05] MEDS: Melatonin 3 MG TABLET PO SCH (20:48)
[2017-06-06] MEDS: *HR* OxyCODONE Immed Rel 5 MG TABLET PO PRN ×3 (05:25→21:17)
[2017-06-06 05:57] LABS: Basophils % 0.3 %; Eosinophils # 0.2 K/mcL (0.0-0.6); Eosinophils % 3.6 %; Hematocrit 26.2 % (35.3-44.9); Hemoglobin 8.6 g/dL (11.5-15.4); Immature Granulocytes % 0.3 % (0-4); Lymphocytes # 1.8 K/mcL (0.6-4.6); Lymphocytes % 29.5 %; Mean Corpuscular HGB Conc 32.8 g/dL (31.6-35.5); Mean Corpuscular Volume 91.3 fL (83.0-100.0); Mean Platelet Volume 10.4 fL (9.4-12.4); Monocytes # 0.8 K/mcL (0.0-1.3); Monocytes % 13.5 %; Neutrophils # 3.2 K/mcL (1.6-8.9); Platelet Count 175 K/mcL (140-400); Red Blood Count 2.87 M/mcL (3.82-4.97); Red Cell Distribution Width 15.4 % (11.5-14.5); Segmented Neutrophils % 52.8 %
[2017-06-06 06:13] LABS: BUN/Creatinine Ratio 24 (6-26); Blood Urea Nitrogen 18 mg/dL (7-20); Calcium 9.3 mg/dL (8.6-10.8); Carbon Dioxide 29 mEq/L (19-29); Chloride 97 mEq/L (98-109); Glucose 111 mg/dL (70-99); Osmolality,Calculated 283 (280-300); Potassium 4.3 mEq/L (3.5-4.5); Sodium 135 mEq/L (136-145); eGFR For African Americans > 60 (> 60); eGFR For Non-African Americans > 60 (> 60)
[2017-06-06] MEDS: APIXABAN 5 MG TABLET PO SCH ×2 (08:33→21:17)
[2017-06-06] MEDS: Lisinopril 20 MG TABLET PO SCH (08:34)
[2017-06-06] MEDS: Furosemide 40 MG TABLET PO SCH ×2 (08:34→19:07)
[2017-06-06] MEDS: Sennosides 8.6 MG TABLET PO SCH (08:34)
[2017-06-06] MEDS: Aspirin Enteric Coated 81 MG Tablet PO SCH (08:34)
[2017-06-06] MEDS: Nystatin POWDER 30 GM BOTTLE TP SCH ×3 (08:35→21:22)
--- NOTE | 2017-06-06 10:54 | Internal Med Progress Note ---
Date of Encounter: 06/06/17 Time of Encounter: 10:51 - Assessment and plan (1) Acute ischemic right MCA stroke Current Visit: Yes Status: Acute Assessment and plan: She is making slow progress. Otherwise stable. (2) History of DVT of lower extremity Current Visit: Yes Status: Acute Assessment and plan: On anticoagulation at the present time. No bleeding. Hemoglobin is stable slightly decreased. (3) Hypertension Current Visit: Yes Status: Chronic Assessment and plan: Her high blood pressure is stable on present regimen. Qualifiers: Hypertension type: essential hypertension Qualified Code(s): I10 - Essential (primary) hypertension (4) Hyponatremia Current Visit: Yes Status: Acute Assessment and plan: Slightly increased sodium level. We continue to follow. - Subjective Interval history: Patient has no acute complaints today. He is upping chair and getting her physical therapy. As any chest pains nausea vomiting or diarrhea. Chronic complaint for low rectal pain. Set this pain has been there for many years. So far urinary incontinence or burning sensations. . Overall she is making slow progress but making some progress. The slow progress is primarily due to her inability to stand and bear weight on her left foot due to chronic ulcer. She is being followed by bone clinic . - Constitutional Vitals: Temp Pulse Resp BP Pulse Ox 97.4 F L 82 18 145/60 95 06/06/17 07:19 06/06/17 07:19 06/06/17 07:19 06/06/17 07:19 06/06/17 07:19 General appearance: Present: A&O X 2, A&O X 3, morbidly obese, pleasant, answers questions appropriately. Absent: no acute distress - Respiratory Respiratory exam: Present: CTAB. Absent: chest wall tenderness, decreased breath sounds, rhonchi, wheezes - Cardiovascular Cardiovascular exam: Present: RRR. Absent: clicks, diastolic murmur, distant heart sounds, JVD - GI/Abdominal GI/Abdominal exam: Present: normal bowel sounds, soft. Absent: rebound, rigid Internal Medicine: Result - Labs CBC & Chem 7: 06/06/17 04:50 06/06/17 04:50 Labs: Short CBC 06/06/17 Range/Units 04:50 WBC 6.1 (4.3-11.1) K/mcL Hgb 8.6 L (11.5-15.4) g/dL Hct 26.2 L (35.3-44.9) % Plt Count 175 (140-400) K/mcL Neutrophils # 3.2 (1.6-8.9) K/mcL BMP 06/06/17 04:50 Sodium 135 L Potassium 4.3 Chloride 97 L Carbon Dioxide 29 BUN 18 Creatinine 0.76 Glucose 111 H Calcium 9.3 - ABG Interpretation ABG results: PT/INR, D-dimer PT 13.6 Seconds (9.4-12.1) H 05/12/17 05:05 - VTE Documentation of Mechanical Device: Graduated compression elastic hosiery Consult Discharge Plan - Plan Referrals: Viktoria Diaz, AUTO WINDER [Primary Care Provider] -
[2017-06-06] MEDS: Melatonin 3 MG TABLET PO SCH (21:17)
[2017-06-06] MEDS: Acetaminophen 325 MG TABLET PO PRN (21:18)
[2017-06-07] MEDS: *HR* OxyCODONE Immed Rel 5 MG TABLET PO PRN ×4 (01:35→21:29)
[2017-06-07 05:50] LABS: BUN/Creatinine Ratio 23 (6-26); Blood Urea Nitrogen 18 mg/dL (7-20); Calcium 9.4 mg/dL (8.6-10.8); Carbon Dioxide 31 mEq/L (19-29); Chloride 94 mEq/L (98-109); Glucose 122 mg/dL (70-99); Osmolality,Calculated 281 (280-300); Sodium 134 mEq/L (136-145); eGFR For African Americans > 60 (> 60); eGFR For Non-African Americans > 60 (> 60)
[2017-06-07] MEDS: Furosemide 40 MG TABLET PO SCH ×2 (08:31→17:15)
[2017-06-07] MEDS: Sennosides 8.6 MG TABLET PO SCH (08:31)
[2017-06-07] MEDS: Lisinopril 20 MG TABLET PO SCH (08:31)
[2017-06-07] MEDS: APIXABAN 5 MG TABLET PO SCH ×2 (08:31→20:21)
[2017-06-07] MEDS: Aspirin Enteric Coated 81 MG Tablet PO SCH (08:31)
[2017-06-07] MEDS: Nystatin POWDER 30 GM BOTTLE TP SCH ×3 (08:32→21:29)
--- NOTE | 2017-06-07 13:15 | Discharge Summary ---
Date of Encounter: 06/08/17 Time of Encounter: 13:12 - Discharge Diagnosis (1) Acute ischemic right MCA stroke Priority: Primary Status: Acute Comments: Patient was admitted with CVA and paralysis on the left side. (2) History of DVT of lower extremity Priority: Secondary Status: Chronic Comments: History of DVT and status post embolectomy (3) Hypertension Priority: Secondary Status: Chronic Comments: history of hypertension she is on med high blood pressure have been stable. Qualifiers: Hypertension type: essential hypertension Qualified Code(s): I10 - Essential (primary) hypertension (4) Hyponatremia Priority: Secondary Status: Chronic Comments: mild Hyonaterimia Improving and stable . (5) Ulcerated, foot Priority: Secondary Status: Acute Comments: She has ulcer on left heel . Suppotive care . She is to remian nn weight bearing for a week and further assessment needed as depth and extend of her ulcer is not known . 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 with unspecified severity (6) Hypothyroid Priority: Secondary Status: Chronic Comments: Stable on meds Qualifiers: Qualified Code(s): E03.9 - Hypothyroidism, unspecified - Discharge Medications Home Medications: Acetaminophen [Tylenol] 650 mg PO Q6HR PRN 05/11/17 [History] Aspirin [Lo-Dose Aspirin EC] 81 mg PO DAILY 05/11/17 [History] Atorvastatin [Lipitor] 20 mg PO HS 05/11/17 [History] Bisacodyl [Dulcolax] 10 mg RC DAILY PRN 05/11/17 [History] Carvedilol [Coreg] 25 mg PO BID 05/11/17 [History] Docusate [Colace] 100 mg PO BID PRN 05/11/17 [History] Ipratropium/Albuterol Neb [Duoneb] 3 ml IH Q6HWA 05/11/17 [History] Levothyroxine [Synthroid] 125 mcg PO DAILY 05/11/17 [History] Lisinopril [Zestril] 10 mg PO DAILY 05/11/17 [History] Melatonin 5 mg PO HS 05/11/17 [History] Nystatin POWDER [Nystop] 1 gm TP QID 05/11/17 [History] Ondansetron ODT [Zofran ODT] 4 mg SL Q6HR PRN 05/11/17 [History] OxyCODONE Immed Rel [Roxicodone 5 MG] 5 mg PO Q4H PRN 05/11/17 [History] Apixaban [Eliquis] 2.5 mg PO BID #60 tablet 06/03/17 [Rx] Bisacodyl [Dulcolax] 10 mg RC DAILY PRN 06/07/17 [Rx] Furosemide [Lasix] 40 mg PO BIDDIURETIC tab 06/07/17 [Rx] OxyCODONE Immed Rel [Roxicodone 5 MG] 5 mg PO Q4HR PRN tab 06/07/17 [Rx] Allergies/Adverse Reactions: Allergies No Known Allergies Allergy (Verified 06/03/17 12:32) Date of admission: 05/11/17 20:19 05/11/2017 Primary care physician: Viktoria Diaz CNP Consults: 05/11/17 21:13 Consult to Occupational Therapy [CONS] Routine Comment: eval and treat Reason for Consult: eval and treat Consult to Physical Therapy [CONS] Routine Comment: eval and treat Reason for Consult: eval and treat Consult to Recreational Therapy [CONS] Routine Comment: Consult to Spice Grinder [CONS] Routine Reason for SW Consult: discharge planning 05/12/17 13:20 Consult to Speech Therapy [CONS] Routine Comment: Evaluate, develop and implement POC Reason for Consult: CVA Time Notified: 13:00 Call Completed: No 05/13/17 14:39 Consult to Wound Care [CONS] Routine Reason for Consult: wound care Time Notified: 15:00 Call Completed: No Discharging clinician: Yvon Iglesias Anticipated date of discharge: 06/08/17 - Patient Status Disposition: Transfer SNF Condition: Fair Functional capacity at discharge: wheelchair bound Overall status at discharge: patient is not back to baseline (slow progress) - Discharge Instructions Follow Up With: Viktoria Diaz CNP [Primary Care Provider] - - Diet and Activity Activity: as per physical therapy Diet: advance to your usual diet Interval History: Patient was admitted was admitted for paralysis left side . She is s/p embolectomy /DVT , HTN , DM ,Hypothyroid . Her stay was uneventful except that she developed ulcer on her left heel. Wound clinic saw patient and recommend complete non weight bearing as part of treatment . no debridement was done . Skin is intact so the depth and grade of ulcer is not know at this time . The plan was t keep her off weight for a week and then reassess the extend and if debribment was needed . He other medical conditions remained stable . Due to weight bearing issue beacuse of ulcer foot , she has reached her rehab potential at the resent time . please see PT note for more details Hospital course: Ms. Lozada is a 81 year old female - Time Spent with Patient Total time spent providing and/or coordinating discharge services: - Constitutional Vitals: Temp Pulse Resp BP Pulse Ox 97.8 F 73 18 131/71 97 06/07/17 07:33 06/07/17 07:33 06/07/17 07:33 06/07/17 07:33 06/07/17 07:33 General appearance: Present: A&O X 2, A&O X 3, morbidly obese, pleasant, answers questions appropriately. Absent: no acute distress - Head Head exam: Present: normal inspection - Eye Eye exam: Present: PERRL - ENT ENT exam: Present: mucous membranes moist, normal external ear exam - Neck Neck exam general surgery: Present: supple. Absent: tenderness, nuchal rigidity - Respiratory Respiratory exam: Present: CTAB. Absent: chest wall tenderness, respiratory distress, rhonchi, stridor, wheezes - Cardiovascular Cardiovascular exam: Present: RRR. Absent: JVD, systolic murmur - GI/Abdominal GI/Abdominal exam: Present: normal bowel sounds (local ucer left heel extend of her ulcer not known since skin is intact . Mild color changes . Mild edema ), soft. Absent: guarding, rebound, splenomegaly, tenderness - Incison Incision: Present: intact - Neurological Exam Additional comments: weakness on left side. Cranial nerves are grossly intact She is alert and oriented and cooperative - VTE Documentation of Mechanical Device: Graduated compression elastic hosiery
--- NOTE | 2017-06-07 13:18 | Physician Discharge Referral ---
ExtendedCare Referral Info Transfer To: [facility] Institutional Level of Care: Skilled - Diagnosis (1) Acute ischemic right MCA stroke Status: Acute (2) History of DVT of lower extremity Status: Chronic (3) Hypertension Status: Chronic (4) Hyponatremia Status: Chronic (5) CVA (cerebral vascular accident) Status: Acute (6) History of embolectomy Status: Acute (7) Ulcerated, foot Status: Acute (8) Hypothyroid Status: Acute Expected Duration of Placement: >30 days Prognosis: Fair - Transfer Medications Home Medications: Acetaminophen [Tylenol] 650 mg PO Q6HR PRN 05/11/17 [History] Aspirin [Lo-Dose Aspirin EC] 81 mg PO DAILY 05/11/17 [History] Atorvastatin [Lipitor] 20 mg PO HS 05/11/17 [History] Bisacodyl [Dulcolax] 10 mg RC DAILY PRN 05/11/17 [History] Carvedilol [Coreg] 25 mg PO BID 05/11/17 [History] Docusate [Colace] 100 mg PO BID PRN 05/11/17 [History] Ipratropium/Albuterol Neb [Duoneb] 3 ml IH Q6HWA 05/11/17 [History] Levothyroxine [Synthroid] 125 mcg PO DAILY 05/11/17 [History] Lisinopril [Zestril] 10 mg PO DAILY 05/11/17 [History] Melatonin [Melatonin] 5 mg PO HS 05/11/17 [History] Nystatin POWDER [Nystop] 1 gm TP QID 05/11/17 [History] Ondansetron ODT [Zofran ODT] 4 mg SL Q6HR PRN 05/11/17 [History] OxyCODONE Immed Rel [Roxicodone 5 MG] 5 mg PO Q4H PRN 05/11/17 [History] Sennosides [Senna] 8.6 mg PO DAILY 05/11/17 [History] Apixaban [Eliquis] 2.5 mg PO BID #60 tablet 06/03/17 [Rx] Allergies/Adverse Reactions: Allergies No Known Allergies Allergy (Verified 06/03/17 12:32) - Respiratory Orders Smoking Cessation: Smoking cessation has been advised. For more information, call the [place] Tobacco Quit Line at 4-246-BHVJ-NOW. - Rehabiliation Orders Rehab Potential: Fair Rehab Orders: Evaluation for Physical Therapy, Evaluation for Occupational Therapy, Evaluation for Speech Therapy - Treatments Skin tear care topically daily PRN per policy List/Other: has ulcer on left heal - Diet Orders Regular CERTIFICATION: I certify that the transfer of the above named patient to an Extended Care Facility is necessary for the continuing treatment of the diagnosis listed. The above information is true and accurate reflection of patient's current condition. Confidential - Redisclosure prohibited without a patient's written consent.
[2017-06-07] MEDS: Acetaminophen 325 MG TABLET PO PRN (20:20)
[2017-06-07] MEDS: Melatonin 3 MG TABLET PO SCH (20:20)
[2017-06-08] MEDS: *HR* OxyCODONE Immed Rel 5 MG TABLET PO PRN ×2 (03:55→09:38)
[2017-06-08 07:28] VITALS: BP 145/62
[2017-06-08] MEDS: Aspirin Enteric Coated 81 MG Tablet PO SCH (09:37)
[2017-06-08] MEDS: Lisinopril 20 MG TABLET PO SCH (09:38)
[2017-06-08] MEDS: APIXABAN 5 MG TABLET PO SCH (09:38)
[2017-06-08] MEDS: Furosemide 40 MG TABLET PO SCH (09:38)
[2017-06-08] MEDS: Sennosides 8.6 MG TABLET PO SCH (09:38)
[2017-06-08] MEDS: Nystatin POWDER 30 GM BOTTLE TP SCH (09:39)
== END 2017-06-08 12:40 | DRG 57 ==
LOC: INPGRE 20:19
PROVIDERS: ADMIT Internal Medicine; ATTEND Internal Medicine